=== PATIENT | female | born 1985 | race Caucasian/White ===

== ENCOUNTER 2016-10-15 13:07 | Emergency (ER) | payer OTHER ==
[2016-10-15] MEDS ORDERED: diphenhydrAMINE 50 MG/ML 1 ML VIAL IVP STA (15:11)
[2016-10-15] MEDS ORDERED: SODIUM CHLORIDE 0.9% 1,000 ML IV ONE (15:11)
[2016-10-15] MEDS ORDERED: METOCLOPRAMIDE 5 MG/ML 2 ML VIAL IVP STA (15:11)
--- NOTE | 2016-10-15 15:19 | ED ---
Headache HPI - General Chief Complaint: Headache Stated Complaint: Headache, nausea Time Seen by Provider: 10/15/16 15:07 Mode of arrival: ambulatory Limitations: no limitations - History of Present Illness Initial Comments: This is a 31-year-old female with history of migraines presents emergency report for headache for the last 3 days. She states that it is bifrontal and nonradiating. She states that she has associated photophobia. She also has some associated nausea and vomiting. She denies any focal weakness, numbness, or Pamela. No double vision. No neck pain. She states that all of her symptoms are typical for her migraines. She states that she took Tylenol at home however this did not help. The only thing that helps his IV medications. - Related Data Home Medications Medication Instructions Recorded Confirmed No Known Home Medications [No 10/15/16 10/15/16 Known Home Medications] Allergies Allergy/AdvReac Type Severity Reaction Status Date / Time fish derived Allergy Unknown Verified 10/15/16 15:15 ivory soap Allergy Unknown Uncoded 06/29/16 00:15 Review of Systems ROS Statement: Those systems with pertinent positive or pertinent negative responses have been documented in the HPI. ROS Other: All systems not noted in ROS Statement are negative. Past Medical History Past Medical History: Renal Disease Additional Past Medical History / Comment(s): KIDNEY STONES, colitis, migraines History of Any Multi-Drug Resistant Organisms: None Reported Past Surgical History: Section, Tubal Ligation Additional Past Surgical History / Comment(s): PT STATES SHE HAS HAD A ROBOTIC SURGERY FOR ENDOMETRIOSIS; KIDNEY STENT; BLADDER STENT; LITHOTRIPSY Past Anesthesia/Blood Transfusion Reactions: No Reported Reaction Past Psychological History: ADD/ADHD, Bipolar, Depression Additional Psychological History / Comment(s): PT STATES SHE IS BIPOLAR BUT DOES NOT TAKE ANY MEDICATIONS OF ANY KIND AND DOES NOT SEE A PSYCHIATRIST OR THERAPIST. PT LIVES IN AN APARTMENT WITH HER 7YR OLD SON. SHE IS NORMALLY SELF SUFFICIENT. SHE IS EMPLOYED. SHE DRIVES A CAR. SHE STATES HER FATHER IS HELPFUL AND WILL HELP TAKE CARE OF HER SON WHILE SHE IS HOSPITALIZED. Smoking Status: Current every day smoker Past Alcohol Use History: None Reported Past Drug Use History: None Reported - Past Family History Father Family Medical History: Diabetes Mellitus Mother Family Medical History: Unable to Obtain Additional Family Medical History / Comment(s): PT STATES SHE DOES NOT HAVE ANYTHING MUCH TO DO WITH HER MOTHER. General Exam - General Exam Comments Initial Comments: Constitutional: Awake alert Appears comfortable Head: Normocephalic atraumatic Eyes: no conjunctival injection No scleral icterus EOMI Neck: No JVD Supple Heart: Regular rate rhythm normal S1-S2 no murmurs Lungs: Clear to auscultation bilaterally No wheezing No rales Abdomen: Soft nondistended nontender Extremities: Non edematous DP pulses intact Radial pulses intact Neuro: A&Ox3 renal nerves II through XII are grossly intact, 5 out of 5 strength in upper and lower extremities bilaterally, no ataxia, extraocular muscles are intact, pupils are 3 mm reactive bilaterally Psych: Appropriate mood and affect Limitations: no limitations Course Vital Signs 10/15/16 10/15/16 10/15/16 13:46 16:08 16:15 Temperature 98 F Pulse Rate 78 86 105 H Respiratory 20 14 18 Rate Blood Pressure 126/84 134/86 140/87 O2 Sat by Pulse 99 99 98 Oximetry 10/15/16 17:03 Temperature Pulse Rate 94 Respiratory 14 Rate Blood Pressure 114/70 O2 Sat by Pulse 98 Oximetry Medical Decision Making - Medical Decision Making Is a 31-year-old came in for a migraine. The patient's headache is completely resolved of her medications. She now feels comfortable months ago home. Father is going to take her home. She can return if she has worsening or changing symptoms. All cautions were answered. - Lab Data Lab Results 10/15/16 Range/Units 15:34 Urine HCG, Qual Not Detected (Not Detectd) Disposition Clinical Impression: Migraine Disposition: HOME SELF-CARE Condition: Stable Instructions: Acute Headache (ED) Referrals: Jared Thompson DO [Primary Care Provider] - 1-2 days
[2016-10-15] MEDS ORDERED: LORazepam 2 MG/ML SYRINGE IV STA ×2 (16:14→16:17)
[2016-10-15 17:17] VITALS: BP 116/66; PULSE 88; RESP 16; TEMP 98.3
== END 2016-10-15 17:10 | disposition home or self-care (01) ==
LOC: EC 13:07
DX: G43.909 Migraine, unspecified, not intractable, without status migrainosus (principal); R11.2 Nausea with vomiting, unspecified; F17.200 Nicotine dependence, unspecified, uncomplicated; Z91.013 Allergy to seafood; Z91.09 Other allergy status, other than to drugs and biological substances
CPT/HCPCS: 81025; 99283; 96374; 96375 ×2; 96361; J2060; J1200; J2765

== ENCOUNTER 2017-02-06 08:11 | Emergency (ER) | payer OTHER ==
[2017-02-06] MEDS ORDERED: diphenhydrAMINE 50 MG/ML 1 ML VIAL IVP STA (08:22)
[2017-02-06] MEDS ORDERED: SODIUM CHLORIDE 0.9% 1,000 ML IV STA (08:22)
[2017-02-06] MEDS ORDERED: KETOROLAC 30 MG/ML 1 ML VIAL IVP STA (08:22)
[2017-02-06] MEDS ORDERED: PROMETHAZINE INJ 25 MG in SODIUM CHLORIDE 0.9% 50 ML IVPB STA (08:27)
--- NOTE | 2017-02-06 08:29 | ED ---
General Adult HPI - General Chief complaint: Headache Stated complaint: migraine Time Seen by Provider: 02/06/17 08:16 Source: patient, RN notes reviewed Mode of arrival: ambulatory Limitations: no limitations - History of Present Illness Initial comments: Patient 31-year-old female sitting in the past medical history for migraines, who presents emergency room today with chief complaint of a migraine headache that started 2 days ago. She does admit that it's located in the front. Does admit that it seems to radiate around to the back. Patient states that she does have some photosensitivity. She admits to nausea. States only symptoms are consistent with migraine headaches that she's had in the past. She states she usually uses Tylenol ibuprofen at home but is had no relief. She denies any new symptoms today. Denies any other complaints. Patient denies any recent fever, chills, shortness of breath, chest pain, back pain, abdominal pain, nausea or vomiting, numbness or tingling, dysuria or hematuria, constipation or diarrhea, visual changes, or any other complaints. - Related Data Home Medications Medication Instructions Recorded Confirmed No Known Home Medications [No 10/15/16 02/06/17 Known Home Medications] Allergies Allergy/AdvReac Type Severity Reaction Status Date / Time fish derived Allergy Unknown Verified 02/06/17 09:09 ivory soap Allergy Unknown Uncoded 02/06/17 08:15 Review of Systems ROS Statement: Those systems with pertinent positive or pertinent negative responses have been documented in the HPI. ROS Other: All systems not noted in ROS Statement are negative. Past Medical History Past Medical History: Renal Disease Additional Past Medical History / Comment(s): KIDNEY STONES, colitis, migraines History of Any Multi-Drug Resistant Organisms: None Reported Past Surgical History: Section, Tubal Ligation Additional Past Surgical History / Comment(s): PT STATES SHE HAS HAD A ROBOTIC SURGERY FOR ENDOMETRIOSIS; KIDNEY STENT; BLADDER STENT; LITHOTRIPSY Past Anesthesia/Blood Transfusion Reactions: No Reported Reaction Past Psychological History: ADD/ADHD, Bipolar, Depression Smoking Status: Current every day smoker Past Alcohol Use History: None Reported Past Drug Use History: None Reported - Past Family History Father Family Medical History: Diabetes Mellitus Mother Family Medical History: Unable to Obtain Additional Family Medical History / Comment(s): PT STATES SHE DOES NOT HAVE ANYTHING MUCH TO DO WITH HER MOTHER. General Exam - General Exam Comments Initial Comments: General: The patient is awake and alert, in no distress, and does not appear acutely ill. Eye: Pupils are equal, round and reactive to light, extra-ocular movements are intact. No nystagmus. There is normal conjunctiva bilaterally. No signs of icterus. Ears, nose, mouth and throat: There are moist mucous membranes and no oral lesions. Neck: The neck is supple, there is no tenderness or JVD. Cardiovascular: There is a regular rate and rhythm. No murmur, rub or gallop is appreciated. Respiratory: Lungs are clear to auscultation, respirations are non-labored, breath sounds are equal. No wheezes, stridor, rales, or rhonchi. Musculoskeletal: Normal ROM, no tenderness. Strength 5/5. Sensation intact. Pulses equal bilaterally 2+. Neurological: A&O x 3. CN II-XII intact, There are no obvious motor or sensory deficits. Coordination appears grossly intact. Speech is normal. Skin: Skin is warm and dry and no rashes or lesions are noted. Psychiatric: Cooperative, appropriate mood & affect, normal judgment. Limitations: no limitations Course Vital Signs 02/06/17 02/06/17 02/06/17 08:13 08:51 09:45 Temperature 98.0 F 98.1 F 98.1 F Pulse Rate 102 H 92 84 Respiratory 18 16 16 Rate Blood Pressure 121/80 137/78 122/73 O2 Sat by Pulse 98 99 97 Oximetry Medical Decision Making - Medical Decision Making Reexamined at this time shows no signs of distress. States she's feeling better. Patient will be discharged home Disposition Clinical Impression: Migraine Disposition: HOME SELF-CARE Condition: Good Instructions: Migraine Headache (ED) Additional Instructions: Please use medication as discussed. Please follow-up with family doctor in the next 2 days of symptoms have not improved. Please return to emergency room if the symptoms increase or worsen or for any other concerns. Referrals: None,Stated [Primary Care Provider] - 1-2 days Time of Disposition: 10:07
[2017-02-06 08:54] VITALS: RESP 16
[2017-02-06 09:54] VITALS: BP 122/73; PULSE 84
[2017-02-06 10:23] VITALS: TEMP 98.2
== END 2017-02-06 10:19 | disposition home or self-care (01) ==
LOC: EC 08:11
DX: G43.909 Migraine, unspecified, not intractable, without status migrainosus (principal); F17.200 Nicotine dependence, unspecified, uncomplicated; Z91.013 Allergy to seafood; Z91.048 Other nonmedicinal substance allergy status
CPT/HCPCS: 99283; 96374; 96375; J1200; J2550; J1885

== ENCOUNTER → 2017-03-13 | Outpatient (CLI) | payer OTHER ==
--- NOTE | 2017-03-13 16:33 | US ---
EXAMINATION TYPE: US pelvic complete DATE OF EXAM: 03/13/2017 COMPARISON: CT CLINICAL HISTORY: N92.0 MENORRHAGIA. Heavy Menses TECHNIQUE: Transabdominal (TA) Date of LMP: 03/02/2017 EXAM MEASUREMENTS: Uterus: 9.2 x 3.1 x 4.6 cm Endometrial Stripe: 0.9 cm Right Ovary: 2.3 x 1.4 x 1.8 cm Left Ovary: 2.5 x 1.8 x 2.3 cm 1. Uterus: Anteverted Heterogeneous, otherwise appeared wnl 2. Endometrium: wnl 3. Right Ovary: wnl 4. Left Ovary: wnl 5. Bilateral Adnexa: wnl 6. Posterior cul-de-sac: wnl IMPRESSION: No significant abnormality.
[2017-03-13 17:08] LABS: Follicle Stimulating Hormone 4.4 mIU/mL; Prolactin 33.5 ng/mL (3.0-18.6)
== END | disposition home or self-care (01) ==
LOC: RADUSWWP 16:11
PROVIDERS: ATTEND Obstetrics & Gynecology
DX: N92.0 Excessive and frequent menstruation with regular cycle (principal)
CPT/HCPCS: 76856; 83001; 83002; 84146; 84443

== ENCOUNTER → 2017-03-16 | Outpatient (CLI) | payer OTHER ==
--- NOTE | 2017-03-17 07:56 | USB ---
Reason for exam: clinical finding. Indicated problem(s): difficult physical exam and pain in both breasts. Palpable abnormality in the left breast. Physical Findings: Nurse Summary: 1cm movable at 12 o'clock and 3 o'clock in the left breast (nurse dw). US Breast LT Left breast ultrasound includes all four quadrants, the retroareolar region and axilla. Finding demonstrates no cystic or solid lesion seen. These results were verbally communicated with the patient and result sheet given to the patient on 03/16/17. ASSESSMENT: Negative, BI-RAD 1 RECOMMENDATION: Routine screening mammogram of both breasts at age 33. Manage patient on a clinical basis.
== END ==
LOC: RADUSWWP 15:36
PROVIDERS: ATTEND Obstetrics & Gynecology
DX: N64.4 Mastodynia (principal)

== ENCOUNTER 2017-04-20 09:48 | Emergency (ER) | payer OTHER ==
[2017-04-20 09:53] VITALS: TEMP 97.2
[2017-04-20] MEDS ORDERED: diphenhydrAMINE 50 MG/ML 1 ML VIAL IVP STA (10:01)
[2017-04-20] MEDS ORDERED: SODIUM CHLORIDE 0.9% 2,000 ML IV ONE (10:01)
[2017-04-20] MEDS ORDERED: KETOROLAC 30 MG/ML 1 ML VIAL IVP STA (10:01)
[2017-04-20] MEDS ORDERED: METOCLOPRAMIDE 5 MG/ML 2 ML VIAL IVP STA (10:01)
[2017-04-20] MEDS ORDERED: DEXAMETHASONE SOD PHOSPHATE 10 MG/ML 1 ML VIAL IV STA (10:07)
--- NOTE | 2017-04-20 10:07 | ED ---
Headache HPI - General Chief Complaint: Headache Stated Complaint: headache/nausea Time Seen by Provider: 04/20/17 09:56 Source: patient Mode of arrival: ambulatory Limitations: no limitations - History of Present Illness Initial Comments: The patient is a 31-year-old female who presents with a chief complaint of headache. Patient states the headache has been going on for 4 days constantly. She has a history of migraine headaches. She describes her headache as left frontal. She states that feels extremities stabbing needles into her eye. She states that this is very typical of the migraine headaches that she normally has. She states that she gets a headache about once a month or less about 3 or 4 days. She does not take anything for migraines on a maintenance basis. Patient does not see a neurologist regularly. Patient states that her headache is aggravated by light and sound. There are no alleviating factors. Timing is been constant for the last 4 days. MD Complaint: headache Onset/Timin -: days(s) Onset Description: sudden Location: left, frontal Severity: moderate Quality: aching, sharp Consistency: constant Improves With: nothing Worsens With: light, noise Context: occurred at rest Associated Symptoms: nausea Treatments Prior to Arrival: Acetaminophen, Ibuprofen - Related Data Home Medications Medication Instructions Recorded Confirmed No Known Home Medications [No 10/15/16 04/20/17 Known Home Medications] Allergies Allergy/AdvReac Type Severity Reaction Status Date / Time fish derived Allergy Unknown Verified 04/20/17 10:13 ivory soap Allergy Unknown Uncoded 04/20/17 09:53 Review of Systems ROS Statement: Those systems with pertinent positive or pertinent negative responses have been documented in the HPI. ROS Other: All systems not noted in ROS Statement are negative. Constitutional: Denies: fever, chills Eyes: Reports: eye pain. Denies: vision change ENT: Denies: ear pain, throat pain Respiratory: Denies: cough, dyspnea Cardiovascular: Denies: chest pain, palpitations Endocrine: Denies: fatigue Gastrointestinal: Reports: nausea. Denies: vomiting, diarrhea, constipation Genitourinary: Denies: urgency, dysuria Musculoskeletal: Denies: back pain Skin: Denies: rash Neurological: Reports: headache. Denies: weakness, numbness, paresthesias, abnormal gait Psychiatric: Reports: as per HPI Hematological/Lymphatic: Reports: as per HPI Past Medical History Past Medical History: Renal Disease Additional Past Medical History / Comment(s): KIDNEY STONES, colitis, migraines History of Any Multi-Drug Resistant Organisms: None Reported Past Surgical History: Section, Tubal Ligation Additional Past Surgical History / Comment(s): PT STATES SHE HAS HAD A ROBOTIC SURGERY FOR ENDOMETRIOSIS; KIDNEY STENT; BLADDER STENT; LITHOTRIPSY Past Anesthesia/Blood Transfusion Reactions: No Reported Reaction Past Psychological History: ADD/ADHD, Bipolar, Depression Smoking Status: Current every day smoker Past Alcohol Use History: None Reported Past Drug Use History: None Reported - Past Family History Father Family Medical History: Diabetes Mellitus Mother Family Medical History: Unable to Obtain Additional Family Medical History / Comment(s): PT STATES SHE DOES NOT HAVE ANYTHING MUCH TO DO WITH HER MOTHER. General Exam Limitations: no limitations General appearance: alert, in no apparent distress Head exam: Present: atraumatic, normocephalic Eye exam: Present: normal appearance, PERRL, EOMI ENT exam: Present: normal exam, normal oropharynx Neck exam: Present: normal inspection Respiratory exam: Present: normal lung sounds bilaterally. Absent: respiratory distress, wheezes Cardiovascular Exam: Present: regular rate, normal rhythm, normal heart sounds GI/Abdominal exam: Present: soft. Absent: distended, tenderness Rectal exam: Present: deferred Extremities exam: Present: normal inspection Back exam: Present: normal inspection Neurological exam: Present: alert, oriented X3, CN II-XII intact, normal gait, other (Romberg test is negative. Finger to nose, and rapid alternating movement are within normal limits. Patient has no sensory or motor deficits. Strength is 5 over 5 in bilateral upper and lower extremities.) Psychiatric exam: Present: normal affect, normal mood Skin exam: Present: warm, dry, intact Course Vital Signs 04/20/17 09:51 Temperature 97.2 F L Pulse Rate 91 Respiratory 18 Rate Blood Pressure 135/75 O2 Sat by Pulse 98 Oximetry Medical Decision Making - Medical Decision Making Patient with a history of migraine headaches presents with migraine headache. Patient states is going on for 4 days. Her headache is not alleviated with Motrin or Tylenol. On initial examination vital signs are stable, neuro exam is nonfocal. Patient will be given IV fluids, Toradol, Reglan, and Benadryl. She'll be reassessed. 11:11 AM Patient was reexamined and states that she is feeling better. Her headache is not completely resolved over the patient feels comfortable going home at this point. Patient is instructed to follow-up with primary care and inquire about referral to neurology. She is instructed to take Tylenol and Motrin for headaches at home. She is further instructed to return to the emergency department if her symptoms worsen or change in anyway. Disposition Clinical Impression: Migraine headache Disposition: HOME SELF-CARE Condition: Good Instructions: Acute Headache (ED), Migraine Headache (ED) Referrals: None,Stated [Primary Care Provider] - 1-2 days
[2017-04-20 11:30] VITALS: BP 116/71; PULSE 78; RESP 16
== END 2017-04-20 11:30 | disposition home or self-care (01) ==
LOC: EC 09:48
DX: G43.909 Migraine, unspecified, not intractable, without status migrainosus (principal); F17.200 Nicotine dependence, unspecified, uncomplicated; Z91.013 Allergy to seafood; Z91.048 Other nonmedicinal substance allergy status
CPT/HCPCS: 99283; 96374; 96375 ×3; 96361; J1200; J1100; J2765; J1885

== ENCOUNTER 2017-05-21 14:24 | Emergency (ER) | payer OTHER ==
[2017-05-21 14:33] VITALS: BP 127/76; PULSE 94; RESP 20; TEMP 98.5
--- NOTE | 2017-05-21 15:01 | ED ---
General Adult HPI - General Chief complaint: Extremity Injury, Upper Stated complaint: IHS/Finger pain Time Seen by Provider: 05/21/17 14:46 Source: patient Mode of arrival: ambulatory Limitations: no limitations - History of Present Illness Initial comments: This is a 31-year-old female who presents to the emergency department with chief complaint of left 3rd digit injury. She reports that the incident occurred at work today at approximately 1245. She reports that she jammed her left middle finger into a metal box. States the pain is localized to the left middle knuckle. The pain is constant and is worsened with finger flexion with radiation to the left forearm and elbow. Denies fever, chills, chest pain, shortness of breath, abdominal pain, nausea, vomiting, dysuria, hematuria, numbess, tingling, headache or vision changes. - Related Data Previous Rx's Medication Instructions Recorded Ibuprofen [Motrin] 800 mg PO Q6HR #30 tab 05/21/17 Allergies Allergy/AdvReac Type Severity Reaction Status Date / Time fish derived Allergy Unknown Verified 05/21/17 14:33 ivory soap Allergy Unknown Uncoded 05/21/17 14:33 Review of Systems ROS Statement: Those systems with pertinent positive or pertinent negative responses have been documented in the HPI. ROS Other: All systems not noted in ROS Statement are negative. Past Medical History Past Medical History: Renal Disease Additional Past Medical History / Comment(s): KIDNEY STONES, colitis, migraines History of Any Multi-Drug Resistant Organisms: None Reported Past Surgical History: Section, Tubal Ligation Additional Past Surgical History / Comment(s): PT STATES SHE HAS HAD A ROBOTIC SURGERY FOR ENDOMETRIOSIS; KIDNEY STENT; BLADDER STENT; LITHOTRIPSY Past Anesthesia/Blood Transfusion Reactions: No Reported Reaction Past Psychological History: ADD/ADHD, Bipolar, Depression Smoking Status: Current every day smoker Past Alcohol Use History: None Reported Past Drug Use History: None Reported - Past Family History Father Family Medical History: Diabetes Mellitus Mother Family Medical History: Unable to Obtain Additional Family Medical History / Comment(s): PT STATES SHE DOES NOT HAVE ANYTHING MUCH TO DO WITH HER MOTHER. General Exam - General Exam Comments Initial Comments: General: Awake and alert, well-developed; in no apparent distress. HEENT: Head atraumatic, normocephalic. Pupils are equal, round and reactive to light. Extraocular movements intact. Neck: Supple. Normal ROM. Cardiovascular: Regular rate and rhythm. No murmurs, rubs or gallops. Chest symmetrical. Respiratory: Lungs clear to auscultation bilaterally. No wheezes, rales or rhonchi. Normal respiratory efffort with no use of accessory muscles. Abdomen: Soft, non-tender, non-distended. No rigidity, rebound or guarding. Normal bowel sounds in all 4 quadrants. Extremities/Skin: [place], warm and dry. Left middle digit is mildly swollen. Tenderness along the entire left third digit however more severe at the PIP. Neurological: Alert and oriented x3. CN II-XII grossly intact. Speech is fluent and answers are appropriate. No focal neuro deficits. Psychiatric: Normal mood and affect. No overt signs of depression or anxiety noted. Limitations: no limitations Course Vital Signs 05/21/17 14:31 Temperature 98.5 F Pulse Rate 94 Respiratory 20 Rate Blood Pressure 127/76 O2 Sat by Pulse 98 Oximetry Medical Decision Making - Medical Decision Making Left hand x-ray was reviewed, no abnormalities seen. Patient was advised to rest and ice the finger as needed. Will be prescribed ibuprofen for pain and inflammation. Advised to follow up with PCP and to return to ED if symptoms should worsen. Disposition Clinical Impression: Sprain of finger of left hand Disposition: HOME SELF-CARE Condition: Good Instructions: Casper Hernandez (ED) Additional Instructions: Please take medications as prescribed. Please follow up with PCP within 1-2 days. Return to ED if symptoms should worsen. Prescriptions: Ibuprofen [Motrin] 800 mg PO Q6HR #30 tab Referrals: None,Stated [Primary Care Provider] - 1-2 days Time of Disposition: 15:15
--- NOTE | 2017-05-21 15:04 | XR ---
EXAMINATION TYPE: XR hand complete LT DATE OF EXAM: 05/21/2017 COMPARISON: NONE HISTORY: 31-year-old female pain third digit TECHNIQUE: 3 views FINDINGS: No acute fracture, subluxation, or dislocation. No periostitis or osteolysis. Joint spaces throughout are maintained. IMPRESSION: No acute osseous abnormality seen.
== END 2017-05-21 15:44 | disposition home or self-care (01) ==
LOC: EC 14:24
DX: S63.613A Unspecified sprain of left middle finger, initial encounter (principal); F17.200 Nicotine dependence, unspecified, uncomplicated; Z91.09 Other allergy status, other than to drugs and biological substances; Z91.013 Allergy to seafood; W23.0XXA Caught, crushed, jammed, or pinched between moving objects, initial encounter; Y93.89 Activity, other specified; Y99.0 Civilian activity done for income or pay; Y92.69 Other specified industrial and construction area as the place of occurrence of the external cause
CPT/HCPCS: 99283

== ENCOUNTER → 2017-05-22 | Outpatient (CLI) | payer OTHER ==
[2017-05-22 09:35] LABS: Basophils # (A) 0.1 k/uL (0-0.2); Basophils % (A) 1 %; CH 33.6; CHCM 33.6; Eosinophils # (A) 0.2 k/uL (0-0.7); Eosinophils % (A) 3 %; HCT 46.5 % (34.0-46.0); HDW 2.17; HGB 15.1 gm/dL (11.4-16.0); Luc # (Auto) 0.21; Luc % (Auto) 3; Lymphocytes % (A) 24 %; MCH 32.8 pg (25.0-35.0); MCHC 32.6 g/dL (31.0-37.0); MCV 100.7 fL (80.0-100.0); Mean Platelet Volume 8.2; Monocytes # (A) 0.4 k/uL (0-1.0); Monocytes % (A) 4 %; Neutrophils # (A) 5.5 k/uL (1.3-7.7); Neutrophils % (A) 66 %; RBC 4.62 m/uL (3.80-5.40); WBC 8.4 k/uL (3.8-10.6); WBC (Perox) 8.68
== END | disposition home or self-care (01) ==
LOC: LABPAT 08:55
PROVIDERS: ATTEND Obstetrics & Gynecology
DX: Z01.812 Encounter for preprocedural laboratory examination (principal)
CPT/HCPCS: 36415; 85025

== ENCOUNTER 2017-05-29 06:26 | Day surgery (SDC) | payer OTHER ==
[2017-05-26 13:05] VITALS: BMI 30.7
[~2017-05-29 06:26] MED LIST: DEXAMETHASONE SOD PHOSPHATE 10 MG/ML 1 ML VIAL IV ONE; LACTATED RINGERS 1,000 ML IV SCH; MIDAZOLAM 2 MG/2 ML VIAL IV PRN; ONDANSETRON 4 MG/2 ML VIAL IVP ONE; Pre Op ABX Message 1 EACH MISC MISCELLANE ONE; SCOPOLAMINE 1.5MG/72HR PATCH TRANSDERM ONE
[2017-05-29] MEDS ORDERED: LIDOCAINE 1% 20 ML VIAL (10MG/ML) FOR IV START INTRADERMA ONE (06:57)
--- NOTE | 2017-05-29 07:45 | P.HPOB ---
History of Present Illness H&P Date: 05/29/17 Chief Complaint: menorrhagia labial condyloma Patient is a 31-year-old female with heavy vaginal bleeding. She notes that she has proxy dime size clots and bleeding is extremely heavy. Bleeding has been this bad for number of months and is symptomatically reduced her ability to function. She is having to stay home and missed work. She also is noted to have a 2 or 3.5 cm condyloma on the left labia these will be removed at the same time. On physical exam vital signs are stable and afebrile. Heart regular , lungs clear, extremities without pain. Pelvic exam is otherwise unremarkable. Assessment menorrhagia labial condyloma. Plan D&C with hysteroscopy [facility] with excision of labial condyloma. Past Medical History Past Medical History: Renal Disease Additional Past Medical History / Comment(s): KIDNEY STONES, colitis, migraines History of Any Multi-Drug Resistant Organisms: None Reported Past Surgical History: Section, Tubal Ligation Additional Past Surgical History / Comment(s): PT STATES SHE HAS HAD A ROBOTIC SURGERY FOR ENDOMETRIOSIS; KIDNEY STENT; BLADDER STENT; LITHOTRIPSY Past Anesthesia/Blood Transfusion Reactions: No Reported Reaction Past Psychological History: ADD/ADHD, Bipolar, Depression Additional Psychological History / Comment(s): Does not take any medication for these. Smoking Status: Current every day smoker Past Alcohol Use History: None Reported Additional Past Alcohol Use History / Comment(s): Has been smoking 1/2PPD since 1997. Past Drug Use History: None Reported - Past Family History Father Family Medical History: Diabetes Mellitus Mother Family Medical History: Unable to Obtain Additional Family Medical History / Comment(s): PT STATES SHE DOES NOT HAVE ANYTHING MUCH TO DO WITH HER MOTHER. Medications and Allergies Home Medications Medication Instructions Recorded Confirmed Type No Known Home Medications [No 05/26/17 05/26/17 History Known Home Medications] Allergies Allergy/AdvReac Type Severity Reaction Status Date / Time fish derived Allergy Unknown Verified 05/26/17 12:57 ivory soap Allergy Unknown Uncoded 05/26/17 12:57 Exam Osteopathic Statement: *. No significant issues noted on an osteopathic structural exam other than those noted in the History and Physical/Consult. - Vital Signs Vital signs: Vital Signs Temp Pulse Resp BP Pulse Ox 05/29/17 06:46 97.2 F L 85 16 102/68 98
[2017-05-29] MEDS ORDERED: LIDOCAINE 1% INJ 10MG/ML (20 ML MDV) ONE (07:54)
[2017-05-29] MEDS ORDERED: PROPOFOL 10 MG/ML 20 ML VIAL IV ONE (07:54)
[2017-05-29] MEDS ORDERED: fentaNYL (PF) 50 MCG/ML 2 ML AMP ONE (07:54)
[2017-05-29] MEDS ORDERED: KETOROLAC 30 MG/ML 1 ML VIAL ONE (07:54)
[2017-05-29] MEDS ORDERED: BUPIVACAINE (PF) 0.25% 30 ML VIAL SQ ONE (08:19)
--- NOTE | 2017-05-29 08:37 | P.OP ---
Date of Procedure: 05/29/17 Preoperative Diagnosis: Menorrhagia with labial condyloma Postoperative Diagnosis: Same with multiple sebaceous cysts Procedure(s) Performed: D&C with hysteroscopy and NovaSure ablation. Excisional biopsy of condyloma. Manual expression of multiple sebaceous cysts Anesthesia: MURPHY Surgeon: Lukas Bran Estimated Blood Loss (ml): 2 Pathology: other (Uterine curettings and condyloma) Condition: stable Disposition: same day Operative Findings: 2 large almost 1 cm condyloma one smaller 0.3 cm condyloma and multiple sebaceous cysts noted Description of Procedure: Patient was taken to the operating suite where a general anesthetic was found to be adequate. She was prepped and draped in the normal sterile fashion and placed in dorsal lithotomy position. Initially a weighted speculum was inserted into the vagina into lip of the cervix was identified and grasped with a Allis clamp and the cervix was dilated. Uterus was then sounded to 7 cm pocket. Once this was accomplished camera was inserted no significant pathology was noted therefore camera was removed and sharp curettings were obtained. Once this was accomplished NovaSure systems inserted with a length of 4 and a width of 2.5 it was tested and passed its patency test. It was then enabled and burned for 71 seconds. At the conclusion of this camera was reinserted with good burn noted. Those instruments were then removed and attention was turned to the condyloma. She had 2 larger condyloma left labia lateral to the clitoral area quarter percent Marcaine without epinephrine was injected under these and then they were excised with a 15 blade. Each incision was then closed with 4-0 Vicryl. There was a third smaller condyloma on the left side almost into her groin region which was also excised in a similar fashion with 1 4-0 Vicryl stitch placed to reapproximate the skin. Multiple sebaceous cysts are also noted and as best I could I expressed those. Once this was completed all instruments were removed sponge, lap, needle counts were all correct 2. Patient was then taken to the recovery room in stable and satisfactory condition. Plan - Discharge Summary New Discharge Prescriptions: New Acetaminophen-Codeine 300-30mg [Tylenol #3] 1 tab PO Q4H PRN #30 tablet PRN Reason: Pain Ibuprofen [Motrin] 600 mg PO Q6HR PRN #30 tab PRN Reason: Pain Discharge Medication List Acetaminophen-Codeine 300-30mg [Tylenol #3] 1 tab PO Q4H PRN #30 tablet [Rx] Ibuprofen [Motrin] 600 mg PO Q6HR PRN #30 tab 05/29/17 [Rx] Follow up Appointment(s)/Referral(s): Lukas Bran DO [Doctor of Osteopathic Medicine] - 3 Weeks Activity/Diet/Wound Care/Special Instructions: Rest the next few days, no heavy lifting or driving today. Call for any heavy bleeding, severe pain, or evidence of infection i.e. high temperatures Discharge Disposition: HOME SELF-CARE
[2017-05-29 08:43] VITALS: TEMP 97.5
[2017-05-29] MEDS: HYDROmorphone 0.5 MG/0.5 ML SYRINGE IVP PRN ×4 (08:48→09:01)
[2017-05-29 08:50] VITALS: RESP 16
[2017-05-29] MEDS ORDERED: Acetaminophen-Codeine 300-30mg TAB PO ONE (09:34)
[2017-05-29 09:50] VITALS: BP 117/67; PULSE 87
== END 2017-05-29 10:15 | disposition home or self-care (01) ==
LOC: OR 06:26
PROVIDERS: ATTEND Obstetrics & Gynecology
DX: N92.0 Excessive and frequent menstruation with regular cycle (principal); N90.7 Vulvar cyst; N94.89 Other specified conditions associated with female genital organs and menstrual cycle; N84.0 Polyp of corpus uteri; F17.200 Nicotine dependence, unspecified, uncomplicated; Z87.442 Personal history of urinary calculi; Z91.018 Allergy to other foods; Z91.09 Other allergy status, other than to drugs and biological substances
CPT/HCPCS: 58563; 11422; 10061; 81025; 88305; J1100; J2405; J2001; J3010; J1885; J2704; J1170

== ENCOUNTER 2017-07-12 10:20 | Emergency (ER) | payer OTHER ==
[2017-07-12 10:26] VITALS: BP 128/79; PULSE 100; RESP 19; TEMP 97.6
[2017-07-12] MEDS ORDERED: AMOXICILLIN 500 MG CAP PO STA (10:44)
--- NOTE | 2017-07-12 10:45 | ED ---
ENT HPI - General Chief complaint: ENT Stated complaint: sore throat Time Seen by Provider: 07/12/17 10:30 Source: patient, RN notes reviewed Mode of arrival: ambulatory Limitations: no limitations - History of Present Illness Initial comments: 31-year-old male present emergency department with chief complaint of sore throat. Patient states that she just sore for 3 days no improvement. States it feels like she is swallowing glass. Patient states she received a note from her kids at school stating that there were exposed to strep. Patient states that she's felt febrile. Denies any cough chest congestion shortness breath, headache or dizziness. She has a slight runny nose. Tried Tylenol Motrin and Chloraseptic spray - Related Data Previous Rx's Medication Instructions Recorded Acetaminophen-Codeine 300-30mg 1 tab PO Q4H PRN #30 tablet 05/29/17 [Tylenol #3] Ibuprofen [Motrin] 600 mg PO Q6HR PRN #30 tab 05/29/17 Amoxicillin 500 mg PO Q8H #30 capsule 07/12/17 Allergies Allergy/AdvReac Type Severity Reaction Status Date / Time fish derived Allergy Unknown Verified 07/12/17 10:23 ivory soap Allergy Unknown Uncoded 07/12/17 10:23 Review of Systems ROS Statement: Those systems with pertinent positive or pertinent negative responses have been documented in the HPI. ROS Other: All systems not noted in ROS Statement are negative. Past Medical History Past Medical History: Renal Disease Additional Past Medical History / Comment(s): KIDNEY STONES, colitis, migraines History of Any Multi-Drug Resistant Organisms: None Reported Past Surgical History: Section, Tubal Ligation Additional Past Surgical History / Comment(s): PT STATES SHE HAS HAD A ROBOTIC SURGERY FOR ENDOMETRIOSIS; KIDNEY STENT; BLADDER STENT; LITHOTRIPSY Past Anesthesia/Blood Transfusion Reactions: No Reported Reaction Past Psychological History: ADD/ADHD, Bipolar, Depression Smoking Status: Current every day smoker Past Alcohol Use History: None Reported Past Drug Use History: None Reported - Past Family History Father Family Medical History: Diabetes Mellitus Mother Family Medical History: Unable to Obtain Additional Family Medical History / Comment(s): PT STATES SHE DOES NOT HAVE ANYTHING MUCH TO DO WITH HER MOTHER. General Exam Limitations: no limitations General appearance: alert, in no apparent distress Head exam: Present: atraumatic, normocephalic, normal inspection Eye exam: Present: normal appearance, PERRL, EOMI. Absent: scleral icterus, conjunctival injection, periorbital swelling ENT exam: Present: mucous membranes moist, TM's normal bilaterally, normal external ear exam. Absent: normal oropharynx (Erythematous posterior pharynx) Neck exam: Present: normal inspection, full ROM. Absent: tenderness, meningismus, lymphadenopathy Respiratory exam: Present: normal lung sounds bilaterally. Absent: respiratory distress, wheezes, rales, rhonchi, stridor Cardiovascular Exam: Present: regular rate, normal rhythm, normal heart sounds. Absent: systolic murmur, diastolic murmur, rubs, gallop, clicks Skin exam: Present: warm, dry, intact, normal color. Absent: rash Course Vital Signs 07/12/17 10:24 Temperature 97.6 F Pulse Rate 100 Respiratory 19 Rate Blood Pressure 128/79 O2 Sat by Pulse 99 Oximetry Medical Decision Making - Medical Decision Making 31-year-old male present for severe throat. Patient has strep pharyngitis clinically and will be treated. Patient will continue Tylenol or Motrin and salt water gargles return parameters were discussed. Disposition Clinical Impression: Streptococcal sore throat Disposition: HOME SELF-CARE Condition: Stable Instructions: Strep Throat (ED) Additional Instructions: Please return to the Emergency Department if symptoms worsen or any other concerns. Prescriptions: Amoxicillin 500 mg PO Q8H #30 capsule Referrals: None,Stated [Primary Care Provider] - 1-2 days Time of Disposition: 10:45
== END 2017-07-12 11:01 | disposition home or self-care (01) ==
LOC: EC 10:20
DX: J02.0 Streptococcal pharyngitis (principal); F17.200 Nicotine dependence, unspecified, uncomplicated; Z91.013 Allergy to seafood; Z91.09 Other allergy status, other than to drugs and biological substances
CPT/HCPCS: 99282

== ENCOUNTER 2017-07-13 20:56 | Emergency (ER) | payer OTHER ==
[2017-07-13 21:00] VITALS: BP 137/77; PULSE 88; RESP 16; TEMP 98.5
[2017-07-13] MEDS ORDERED: DEXAMETHASONE SOD PHOSPHATE 10 MG/ML 1 ML VIAL IM STA (21:14)
--- NOTE | 2017-07-13 21:16 | ED ---
ENT HPI - General Chief complaint: ENT Stated complaint: strep throat-revisit Time Seen by Provider: 07/13/17 21:05 Source: patient, RN notes reviewed Mode of arrival: ambulatory Limitations: no limitations - History of Present Illness Initial comments: 31-year-old female presents emergency from she complaint of sore throat, swallowing. Patient seen here yesterday diagnosed with strep pharyngitis. Patient states she started antibiotics. Patient states that she feels her uvula is swollen. Denies any difficulty swallowing front of debridement. Denies fever or chills today. Patient states she's been using Chloraseptic spray, Tylenol Motrin. Patient states that she felt that she need to have her recheck. - Related Data Home Medications Medication Instructions Recorded Confirmed Acetaminophen Tab [Tylenol Tab] 1,000 mg PO Q6HR PRN 07/12/17 07/12/17 Previous Rx's Medication Instructions Recorded Ibuprofen [Motrin] 600 mg PO Q6HR PRN #30 tab 05/29/17 Amoxicillin 500 mg PO Q8H #30 capsule 07/12/17 Lidocaine Viscous 2% [Xylocaine 5 - 10 ml MUCOUS MEM QID PRN #150 07/13/17 Viscous] ml Allergies Allergy/AdvReac Type Severity Reaction Status Date / Time fish derived Allergy Unknown Verified 07/13/17 21:00 ivory soap Allergy Unknown Uncoded 07/13/17 21:00 Review of Systems ROS Statement: Those systems with pertinent positive or pertinent negative responses have been documented in the HPI. ROS Other: All systems not noted in ROS Statement are negative. Past Medical History Past Medical History: Renal Disease Additional Past Medical History / Comment(s): KIDNEY STONES, colitis, migraines History of Any Multi-Drug Resistant Organisms: None Reported Past Surgical History: Section, Tubal Ligation Additional Past Surgical History / Comment(s): PT STATES SHE HAS HAD A ROBOTIC SURGERY FOR ENDOMETRIOSIS; KIDNEY STENT; BLADDER STENT; LITHOTRIPSY. uterine ablation. Past Anesthesia/Blood Transfusion Reactions: No Reported Reaction Past Psychological History: ADD/ADHD, Bipolar, Depression Smoking Status: Current every day smoker Past Alcohol Use History: None Reported Past Drug Use History: None Reported - Past Family History Father Family Medical History: Diabetes Mellitus Mother Family Medical History: Unable to Obtain Additional Family Medical History / Comment(s): PT STATES SHE DOES NOT HAVE ANYTHING MUCH TO DO WITH HER MOTHER. General Exam Limitations: no limitations General appearance: alert, in no apparent distress Head exam: Present: atraumatic, normocephalic, normal inspection Eye exam: Present: normal appearance, PERRL, EOMI. Absent: scleral icterus, conjunctival injection, periorbital swelling ENT exam: Present: mucous membranes moist, TM's normal bilaterally, normal external ear exam. Absent: normal exam, normal oropharynx (Erythema of posterior pharynx, swollen uvula no difficulties on secretions) Neck exam: Present: normal inspection, full ROM. Absent: tenderness, meningismus, lymphadenopathy Respiratory exam: Present: normal lung sounds bilaterally. Absent: respiratory distress, wheezes, rales, rhonchi, stridor Cardiovascular Exam: Present: regular rate, normal rhythm, normal heart sounds. Absent: systolic murmur, diastolic murmur, rubs, gallop, clicks Skin exam: Present: warm, dry, intact, normal color. Absent: rash Course Vital Signs 07/13/17 20:58 Temperature 98.5 F Pulse Rate 88 Respiratory 16 Rate Blood Pressure 137/77 O2 Sat by Pulse 100 Oximetry Medical Decision Making - Medical Decision Making 31-year-old female was observed for recheck sore throat. Patient has mild swelling of the uvula. Patient be given Decadron as she states her stomach is upset. Patient also given viscous lidocaine to help with the discomfort. Return parameters were discussed. Disposition Clinical Impression: Streptococcal sore throat, Uvulitis Disposition: HOME SELF-CARE Condition: Stable Instructions: Uvulitis (ED) Additional Instructions: Please return to the Emergency Department if symptoms worsen or any other concerns. Prescriptions: Lidocaine Viscous 2% [Xylocaine Viscous] 5 - 10 ml MUCOUS MEM QID PRN #150 ml PRN Reason: Pain Referrals: None,Stated [Primary Care Provider] - 1-2 days Time of Disposition: 21:16
== END 2017-07-13 21:24 | disposition home or self-care (01) ==
LOC: EC 20:56
DX: J02.0 Streptococcal pharyngitis (principal); K12.2 Cellulitis and abscess of mouth; F17.200 Nicotine dependence, unspecified, uncomplicated; Z91.09 Other allergy status, other than to drugs and biological substances; Z91.013 Allergy to seafood
CPT/HCPCS: 99282; 96372; J1100

== ENCOUNTER 2017-10-01 12:31 | Emergency (ER) | payer OTHER ==
[2017-10-01 12:49] VITALS: BP 118/77; PULSE 89; RESP 18; TEMP 97.9
[2017-10-01] MEDS ORDERED: KETOROLAC 30 MG/ML 1 ML VIAL IVP STA (13:19)
--- NOTE | 2017-10-01 13:24 | ED ---
General Adult HPI - General Chief complaint: Back Pain/Injury Stated complaint: Abd Pain, Back Pain Time Seen by Provider: 10/01/17 13:02 Source: patient, RN notes reviewed Mode of arrival: ambulatory Limitations: no limitations - History of Present Illness Initial comments: This is a 31-year-old female who presents with a chief complaint of headache and left shoulder pain. The symptoms began simultaneously and abruptly about 3 days ago. She states she has also felt nauseous, but denies vomiting, diarrhea and abdominal pain. She denies any injury to the shoulder. The shoulder pain is worse with movement, but is still painful at rest. Her headache is located in the frontal and temporal regions and is constant. She denies visual changes or injury. She recalls going through stages of feeling "hot then cold" over the last 3 days, but denies fever. - Related Data Home Medications Medication Instructions Recorded Confirmed No Known Home Medications [No 10/01/17 10/01/17 Known Home Medications] Allergies Allergy/AdvReac Type Severity Reaction Status Date / Time fish derived Allergy Unknown Verified 10/01/17 13:03 ivory soap Allergy Unknown Uncoded 10/01/17 12:49 Review of Systems ROS Statement: Those systems with pertinent positive or pertinent negative responses have been documented in the HPI. ROS Other: All systems not noted in ROS Statement are negative. Past Medical History Past Medical History: Renal Disease Additional Past Medical History / Comment(s): KIDNEY STONES, colitis, migraines History of Any Multi-Drug Resistant Organisms: None Reported Past Surgical History: Section, Tubal Ligation, Uterine Ablation Additional Past Surgical History / Comment(s): PT STATES SHE HAS HAD A ROBOTIC SURGERY FOR ENDOMETRIOSIS; KIDNEY STENT; BLADDER STENT; LITHOTRIPSY. uterine ablation. Past Anesthesia/Blood Transfusion Reactions: No Reported Reaction Past Psychological History: ADD/ADHD, Bipolar, Depression Smoking Status: Current every day smoker Past Alcohol Use History: None Reported Past Drug Use History: None Reported - Past Family History Father Family Medical History: Diabetes Mellitus Mother Family Medical History: Unable to Obtain Additional Family Medical History / Comment(s): PT STATES SHE DOES NOT HAVE ANYTHING MUCH TO DO WITH HER MOTHER. General Exam Limitations: no limitations General appearance: alert, in no apparent distress Head exam: Present: atraumatic, normocephalic, normal inspection ENT exam: Present: normal oropharynx, mucous membranes moist, other (tender with palpation of the frontal and maxillary sinuses.) Neck exam: Present: other (left non-tender tonsillar lymphadenopathy) Respiratory exam: Present: normal lung sounds bilaterally. Absent: respiratory distress, wheezes, rales, rhonchi, stridor Cardiovascular Exam: Present: regular rate, normal rhythm, normal heart sounds. Absent: systolic murmur, diastolic murmur, rubs, gallop, clicks GI/Abdominal exam: Present: soft, normal bowel sounds. Absent: distended, tenderness, guarding, rebound, rigid Extremities exam: Present: normal inspection, full ROM, normal capillary refill , other (pain felt in the left scapular area with abduction of the left shoulder above 90 degrees.). Absent: tenderness, pedal edema, joint swelling, calf tenderness Back exam: Present: normal inspection Neurological exam: Present: alert, oriented X3, CN II-XII intact Psychiatric exam: Present: normal affect, normal mood Skin exam: Present: warm, dry, intact, normal color. Absent: rash Course Vital Signs 10/01/17 12:47 Temperature 97.9 F Pulse Rate 89 Respiratory 18 Rate Blood Pressure 118/77 O2 Sat by Pulse 99 Oximetry Medical Decision Making - Medical Decision Making 31-year-old female presented for multiple complaints. Patient is leaving AGAINST MEDICAL ADVICE. Patient states she is emergency that she needs to leave the hospital for. Disposition Clinical Impression: Shoulder pain, Lymphadenopathy, URI (upper respiratory infection) Disposition: Left Against Medical Advice Condition: Stable Referrals: None,Stated [Primary Care Provider] - 1-2 days Time of Disposition: 13:30
== END 2017-10-01 13:29 | disposition left against medical advice (07) ==
LOC: EC 12:31
DX: R59.1 Generalized enlarged lymph nodes (principal); M25.512 Pain in left shoulder; J06.9 Acute upper respiratory infection, unspecified; F17.200 Nicotine dependence, unspecified, uncomplicated; Z87.442 Personal history of urinary calculi; Z87.19 Personal history of other diseases of the digestive system; Z53.29 Procedure and treatment not carried out because of patient's decision for other reasons; Z91.09 Other allergy status, other than to drugs and biological substances; Z91.013 Allergy to seafood
CPT/HCPCS: 99283

== ENCOUNTER 2018-02-10 17:38 | Emergency (ER) | payer OTHER ==
[2018-02-10 18:01] VITALS: BP 120/88; PULSE 95; RESP 16; TEMP 97.8
[2018-02-10] MEDS ORDERED: KETOROLAC 60 MG/2 ML VIAL IM STA (18:41)
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
== END 2018-02-10 18:58 | disposition home or self-care (01) ==
LOC: EC 17:38
DX: S76.311A Strain of muscle, fascia and tendon of the posterior muscle group at thigh level, right thigh, initial encounter (principal); F17.200 Nicotine dependence, unspecified, uncomplicated; Z91.013 Allergy to seafood; Z91.048 Other nonmedicinal substance allergy status; V44.6XXA Car passenger injured in collision with heavy transport vehicle or bus in traffic accident, initial encounter; Y92.89 Other specified places as the place of occurrence of the external cause
CPT/HCPCS: 99283; 96372; J1885

== ENCOUNTER 2018-06-17 15:43 | Emergency (ER) | payer OTHER ==
[2018-06-17 15:56] VITALS: BP 137/77; PULSE 90; RESP 18; TEMP 97.6
[2018-06-17] MEDS ORDERED: IBUPROFEN 600 MG TAB PO STA (16:12)
[2018-06-17] MEDS ORDERED: PENICILLIN V POTASSIUM 250 MG TAB PO STA (16:13)
--- NOTE | 2018-06-17 16:23 | ED ---
ENT HPI - General Chief complaint: Dental/Oral Stated complaint: dental & facial pain Time Seen by Provider: 06/17/18 16:00 Source: patient, RN notes reviewed Mode of arrival: ambulatory Limitations: no limitations - History of Present Illness Initial comments: This is a 32-year-old female who presents to the emergency department with chief complaint of dental pain. Patient states that she broke a right upper tooth 1 month ago. She states over the past 2 weeks she has been experiencing pain. Denies any swelling or drainage. Denies any fevers or chills. Denies chest pain or shortness breath, abdominal pain, nausea or vomiting. Patient states that she does not have dental insurance and has been unable to follow-up with the dentist. - Related Data Home Medications Medication Instructions Recorded Confirmed Ibuprofen [Motrin] 800 mg PO Q6H PRN 02/10/18 02/10/18 Previous Rx's Medication Instructions Recorded Ibuprofen [Motrin] 600 mg PO Q6HR PRN #20 tab 02/10/18 Ibuprofen 600 mg PO Q6HR #20 tablet 06/17/18 Penicillin V Potassium [Pen Vee K] 500 mg PO QID 10 Days tab 06/17/18 Allergies Allergy/AdvReac Type Severity Reaction Status Date / Time fish derived Allergy Unknown Verified 02/10/18 18:45 ivory soap Allergy Rash/Hives Uncoded 02/10/18 18:45 Review of Systems ROS Statement: Those systems with pertinent positive or pertinent negative responses have been documented in the HPI. ROS Other: All systems not noted in ROS Statement are negative. Past Medical History Past Medical History: Renal Disease Additional Past Medical History / Comment(s): KIDNEY STONES, colitis, migraines , endometriosis, History of Any Multi-Drug Resistant Organisms: None Reported Past Surgical History: Ablation, Section, Tubal Ligation, Uterine Ablation Additional Past Surgical History / Comment(s): PT STATES SHE HAS HAD A ROBOTIC SURGERY FOR ENDOMETRIOSIS; KIDNEY STENT; BLADDER STENT; LITHOTRIPSY. uterine ablation. Past Anesthesia/Blood Transfusion Reactions: No Reported Reaction Past Psychological History: ADD/ADHD, Bipolar, Depression Smoking Status: Current every day smoker Past Alcohol Use History: None Reported Past Drug Use History: None Reported - Past Family History Father Family Medical History: Diabetes Mellitus Mother Family Medical History: Unable to Obtain Additional Family Medical History / Comment(s): PT STATES SHE DOES NOT HAVE ANYTHING MUCH TO DO WITH HER MOTHER. General Exam - General Exam Comments Initial Comments: General: Awake and alert, well-developed; in no apparent distress. HEENT: Head atraumatic, normocephalic. Pupils are equal, round and reactive to light. Extraocular movements intact. Oropharynx moist without erythema. Tooth # 5 is fractured and surrounding gumline is tender. No masses or areas of fluctuance are noted. Neck: Supple. Normal ROM. Cardiovascular: Regular rate and rhythm. No murmurs, rubs or gallops. Chest symmetrical. Respiratory: Lungs clear to auscultation bilaterally. No wheezes, rales or rhonchi. Normal respiratory effort with no use of accessory muscles. Musculoskeletal: Normal ROM, no tenderness bilateral upper and lower extremities. Ambulating normally. Skin: [place], warm and dry without rashes or lesions. Neurological: Alert and oriented x3. CN II-XII grossly intact. Speech is fluent and answers are appropriate. No focal neuro deficits. Psychiatric: Normal mood and affect. No overt signs of depression or anxiety noted. Limitations: no limitations Course Vital Signs 06/17/18 15:55 Temperature 97.6 F Pulse Rate 90 Respiratory 18 Rate Blood Pressure 137/77 O2 Sat by Pulse 97 Oximetry Medical Decision Making - Medical Decision Making This is a 32-year-old female who presents to the emergency department with chief complaint of dental pain. Patient reports sustaining a fractured tooth 1 month ago. She states that over the past 2 weeks she is now experiencing pain. On physical examination, tooth #5 is fractured. Surrounding gumline is tender on palpation. No masses or areas of fluctuance are noted. Patient will be started on a course of ibuprofen and penicillin VK. Patient does not have dental insurance and therefore has not followed up with a dentist. She is provided with contact information for a community dental clinic. Patient is in no acute distress and will be discharged home at this time. She is in agreement with plan and voices understanding. All questions were answered. Disposition Clinical Impression: Fracture of tooth, Toothache Disposition: HOME SELF-CARE Condition: Good Instructions: Toothache (ED) Additional Instructions: Please take medications as prescribed. Please follow up with primary care provider within 1-2 days. Return to emergency department if symptoms should worsen or any concerns arise. Please follow up with the [facility] dental [facility]. [facility] [place] [address]. Phone number for new patients or [phone] for existing patients. Prescriptions: Ibuprofen 600 mg PO Q6HR #20 tablet Penicillin V Potassium [Pen Vee K] 500 mg PO QID 10 Days tab Is patient prescribed a controlled substance at d/c from ED?: No Referrals: None,Stated [Primary Care Provider] - 1-2 days Time of Disposition: 16:22
== END 2018-06-17 16:43 | disposition home or self-care (01) ==
LOC: EC 15:43
DX: S02.5XXA Fracture of tooth (traumatic), initial encounter for closed fracture (principal); F17.200 Nicotine dependence, unspecified, uncomplicated; Z91.013 Allergy to seafood; Z91.09 Other allergy status, other than to drugs and biological substances
CPT/HCPCS: 99283

== ENCOUNTER 2018-07-31 15:00 | Emergency (ER) | payer OTHER ==
[2018-07-31 15:11] VITALS: PULSE 94; RESP 18; TEMP 98.2
[2018-07-31 15:12] VITALS: BP 134/84
[2018-07-31] MEDS ORDERED: ONDANSETRON 4 MG/2 ML VIAL IVP STA (15:38)
[2018-07-31] MEDS ORDERED: HYDROmorphone 1 MG/ML 1 ML SYRINGE IVP STA (15:38)
[2018-07-31] MEDS ORDERED: SODIUM CHLORIDE 0.9% 1,000 ML IV STA (15:38)
--- NOTE | 2018-07-31 15:44 | ED ---
General Adult HPI - General Chief complaint: Abdominal Pain Stated complaint: Abd pain Time Seen by Provider: 07/31/18 15:24 Source: patient, RN notes reviewed, old records reviewed Mode of arrival: ambulatory Limitations: no limitations - History of Present Illness Initial comments: Chief complaint and history of present illness this is a 32-year-old female here for complaint of right flank and right lower quadrant pain ongoing for 3 days. Patient reports she's had a past history of kidney stones several times in the past - Related Data Home Medications Medication Instructions Recorded Confirmed Ibuprofen [Motrin] 800 mg PO Q6H PRN 02/10/18 02/10/18 Previous Rx's Medication Instructions Recorded Ibuprofen [Motrin] 600 mg PO Q6HR PRN #20 tab 02/10/18 Ibuprofen 600 mg PO Q6HR #20 tablet 06/17/18 Penicillin V Potassium [Pen Vee K] 500 mg PO QID 10 Days tab 06/17/18 Ciprofloxacin HCl [Cipro] 500 mg PO Q12HR #14 tablet 07/31/18 metroNIDAZOLE [Flagyl] 500 mg PO QID #28 tab 07/31/18 Allergies Allergy/AdvReac Type Severity Reaction Status Date / Time fish derived Allergy Unknown Verified 07/31/18 15:07 ivory soap Allergy Rash/Hives Uncoded 02/10/18 18:45 Review of Systems ROS Statement: Those systems with pertinent positive or pertinent negative responses have been documented in the HPI. Review of systems. No headache or visual acuity changes denies any sore throat chest pain shortness of breath. The patient reports nausea no vomiting no diarrhea. Decreased frequency of urination. Right-sided back pain. No neuro deficits. All systems are reviewed. Patient's past medical problems significant for having had kidney stones on 3 occasions. She also has a history of surgeries include a ureteral stent. She' s had tubal ligation, and uterine ablation. Patient's family history significant for breast cancer. Patient has ALLERGIES to Ivory soap and some fish derived products. She does smoke she was strongly encouraged to stop she denies alcohol use. ROS Other: All systems not noted in ROS Statement are negative. Past Medical History Past Medical History: Renal Disease Additional Past Medical History / Comment(s): KIDNEY STONES, colitis, migraines , endometriosis, History of Any Multi-Drug Resistant Organisms: None Reported Past Surgical History: Ablation, Section, Tubal Ligation, Uterine Ablation Additional Past Surgical History / Comment(s): PT STATES SHE HAS HAD A ROBOTIC SURGERY FOR ENDOMETRIOSIS; KIDNEY STENT; BLADDER STENT; LITHOTRIPSY. uterine ablation. Past Anesthesia/Blood Transfusion Reactions: No Reported Reaction Past Psychological History: ADD/ADHD, Bipolar, Depression Smoking Status: Current every day smoker Past Alcohol Use History: None Reported Past Drug Use History: None Reported - Past Family History Father Family Medical History: Diabetes Mellitus Mother Family Medical History: Unable to Obtain Additional Family Medical History / Comment(s): PT STATES SHE DOES NOT HAVE ANYTHING MUCH TO DO WITH HER MOTHER. General Exam - General Exam Comments Initial Comments: General: The patient is awake and alert, here with a chief complaint of right flank and right lower quadrant abdominal pain for over 3 days. Decreased frequency of urination. Nausea but no vomiting no diarrhea. No fever. Vital signs shows temperature 98.2 pulse 94 story rate 18 pulse ox on percent room air blood pressure 134/84 Eye: Pupils are equal, round and reactive to light, extra-ocular movements are intact ; there is normal conjunctiva bilaterally. No signs of icterus. Ears, nose, mouth and throat: There are moist mucous membranes and no oral lesions. Neck: The neck is supple, there is no tenderness, no anterior cervical lymphadenopathy. Thyroid not enlarged. Cardiovascular: There is a regular rate and rhythm. No murmur, rub or gallop is appreciated. Respiratory: Lungs are clear to auscultation, respirations are non-labored, breath sounds are equal. No wheezes, stridor, rales, or rhonchi. Gastrointestinal: Soft, non-distended, non-tender abdomen without masses or organomegaly noted. There is no rebound or guarding present. No CVA tenderness. Bowel sounds are unremarkable. No flank rash. Back: There is no tenderness to palpation in the midline. There is no obvious deformity. No rashes noted. Musculoskeletal: Normal ROM, no tenderness, There is no pedal edema. There is no calf tenderness or swelling. Sensation intact. Neurological: Patient denies any numbness tingling or dizziness. No gross neuro neurological abnormalities appreciated. Skin: Skin is warm and dry and no rashes or lesions are noted. Psychiatric: Cooperative, Limitations: no limitations Course Vital Signs 07/31/18 15:08 Temperature 98.2 F Pulse Rate 94 Respiratory 18 Rate Blood Pressure 134/84 O2 Sat by Pulse 100 Oximetry Medical Decision Making - Medical Decision Making Medical decision making; this is a 32-year-old female who thinks she had a kidney stone on the right side for the past 3 days. Patient complains of pain nausea and none vomiting no chills no fever. White count 9.9 hemoglobin 14 hematocrit of 49. Potassium 4.3 with a BUN 12 creatinine 0.63 with a GFR greater than 90. Glucose is 96. Urine shows 2 reds 14 whites moderate leuk esterase. Urine test negative. Patient had x -ray of the abdomen reviewed by radiologist Dr. Lemus, he reports a right nephrolithiasis 8 mm stone similar to in the past. CT of the abdomen without contrast was done to rule out possibility of a right- sided kidney stone. The radiologist reports that there is a nonobstructing right renal calculus. No evidence of any renal obstruction. He reports is a normal-appearing appendix and no sign of acute abdomen. He also mentions a subpleural nodule which the patient will be advised to continue to follow-up with with her family physician. We discussed the findings patient also mentioned that she had aspirin told she might have an episode of diverticulitis in the past. Patient's urine was reviewed cultures pending. The patient be placed on Cipro 1 tablet twice day for 1 week. Patient also be placed on Flagyl. Patient advised follow-up family physician. Patient reports the pain was significantly less on discharge. - Lab Data Result diagrams: 07/31/18 15:20 07/31/18 15:20 Lab Results 07/31/18 07/31/18 07/31/18 Range/Units 15:20 15:20 16:15 WBC 9.9 (3.8-10.6) k/uL RBC 4.55 (3.80-5.40) m/uL Hgb 14.3 (11.4-16.0) gm/dL Hct 44.9 (34.0-46.0) % MCV 98.5 (80.0-100.0) fL MCH 31.5 (25.0-35.0) pg MCHC 32.0 (31.0-37.0) g/dL RDW 12.5 (11.5-15.5) % Plt Count 269 (150-450) k/uL Neutrophils % 66 % Lymphocytes % 24 % Monocytes % 5 % Eosinophils % 2 % Basophils % 1 % Neutrophils # 6.5 (1.3-7.7) k/uL Lymphocytes # 2.4 (1.0-4.8) k/uL Monocytes # 0.5 (0-1.0) k/uL Eosinophils # 0.2 (0-0.7) k/uL Basophils # 0.1 (0-0.2) k/uL Sodium 142 (137-145) mmol/L Potassium 4.3 (3.5-5.1) mmol/L Chloride 110 H (98-107) mmol/L Carbon Dioxide 24 (22-30) mmol/L Anion Gap 8 mmol/L BUN 12 (7-17) mg/dL Creatinine 0.63 (0.52-1.04) mg/dL Est GFR (CKD-EPI)AfAm >90 (>60 ml/min/1.73 sqM) Est GFR (CKD-EPI)NonAf >90 (>60 ml/min/1.73 sqM) Glucose 96 (74-99) mg/dL Calcium 9.1 (8.4-10.2) mg/dL Total Bilirubin 0.5 (0.2-1.3) mg/dL AST 24 (14-36) U/L ALT 33 (9-52) U/L Alkaline Phosphatase 35 L (38-126) U/L Total Protein 7.0 (6.3-8.2) g/dL Albumin 3.9 (3.5-5.0) g/dL Amylase 39 (30-110) U/L Lipase 97 (23-300) U/L Urine Color Yellow Urine Appearance Cloudy H (Clear) Urine pH 6.5 (5.0-8.0) Ur Specific [place] 1.017 (1.001-1.035) Urine Protein Negative (Negative) Urine Glucose (UA) Negative (Negative) Urine Ketones Negative (Negative) Urine Blood Trace H (Negative) Urine Nitrite Negative (Negative) Urine Bilirubin Negative (Negative) Urine Urobilinogen 2.0 (<2.0) mg/dL Ur Leukocyte Esterase Moderate H (Negative) Urine RBC 2 (0-5) /hpf Urine WBC 14 H (0-5) /hpf Ur Squamous Epith Cells 26 H (0-4) /hpf Urine Bacteria Rare H (None) /hpf Urine Mucus Rare H (None) /hpf Urine HCG, Qual (Not Detectd) 07/31/18 Range/Units 16:15 WBC (3.8-10.6) k/uL RBC (3.80-5.40) m/uL Hgb (11.4-16.0) gm/dL Hct (34.0-46.0) % MCV (80.0-100.0) fL MCH (25.0-35.0) pg MCHC (31.0-37.0) g/dL RDW (11.5-15.5) % Plt Count (150-450) k/uL Neutrophils % % Lymphocytes % % Monocytes % % Eosinophils % % Basophils % % Neutrophils # (1.3-7.7) k/uL Lymphocytes # (1.0-4.8) k/uL Monocytes # (0-1.0) k/uL Eosinophils # (0-0.7) k/uL Basophils # (0-0.2) k/uL Sodium (137-145) mmol/L Potassium (3.5-5.1) mmol/L Chloride (98-107) mmol/L Carbon Dioxide (22-30) mmol/L Anion Gap mmol/L BUN (7-17) mg/dL Creatinine (0.52-1.04) mg/dL Est GFR (CKD-EPI)AfAm (>60 ml/min/1.73 sqM) Est GFR (CKD-EPI)NonAf (>60 ml/min/1.73 sqM) Glucose (74-99) mg/dL Calcium (8.4-10.2) mg/dL Total Bilirubin (0.2-1.3) mg/dL AST (14-36) U/L ALT (9-52) U/L Alkaline Phosphatase (38-126) U/L Total Protein (6.3-8.2) g/dL Albumin (3.5-5.0) g/dL Amylase (30-110) U/L Lipase (23-300) U/L Urine Color Urine Appearance (Clear) Urine pH (5.0-8.0) Ur Specific [place] (1.001-1.035) Urine Protein (Negative) Urine Glucose (UA) (Negative) Urine Ketones (Negative) Urine Blood (Negative) Urine Nitrite (Negative) Urine Bilirubin (Negative) Urine Urobilinogen (<2.0) mg/dL Ur Leukocyte Esterase (Negative) Urine RBC (0-5) /hpf Urine WBC (0-5) /hpf Ur Squamous Epith Cells (0-4) /hpf Urine Bacteria (None) /hpf Urine Mucus (None) /hpf Urine HCG, Qual Not Detected (Not Detectd) Disposition Clinical Impression: UTI (urinary tract infection) Disposition: HOME SELF-CARE Condition: Fair Instructions: Urinary Tract Infection in Women (ED) Additional Instructions: Patient's fluids. Take Cipro twice a day for 1 week and Flagyl 3 times a day for one week. Follow-up with family physician for further evaluation and repeat chest x-ray as needed. Return emergency room as needed Prescriptions: Ciprofloxacin HCl [Cipro] 500 mg PO Q12HR #14 tablet metroNIDAZOLE [Flagyl] 500 mg PO QID #28 tab Is patient prescribed a controlled substance at d/c from ED?: No Referrals: Boaz Pantoja MD [Primary Care Provider] - 1-2 days
[2018-07-31 15:59] LABS: Basophils # (A) 0.1 k/uL (0-0.2); Basophils % (A) 1 %; Eosinophils # (A) 0.2 k/uL (0-0.7); Eosinophils % (A) 2 %; HCT 44.9 % (34.0-46.0); HGB 14.3 gm/dL (11.4-16.0); Lymphocytes # (A) 2.4 k/uL (1.0-4.8); Lymphocytes % (A) 24 %; MCH 31.5 pg (25.0-35.0); MCV 98.5 fL (80.0-100.0); Mean Platelet Volume 7.7; Monocytes # (A) 0.5 k/uL (0-1.0); Monocytes % (A) 5 %; Neutrophils # (A) 6.5 k/uL (1.3-7.7); Neutrophils % (A) 66 %; Platelet Count 269 k/uL (150-450); RBC 4.55 m/uL (3.80-5.40); RDW 12.5 % (11.5-15.5); WBC 9.9 k/uL (3.8-10.6)
[2018-07-31 16:28] LABS: Appearance,Urine Cloudy (Clear); Bacteria,Urine Rare /hpf; Bilirubin,Urine Negative (Negative); Blood,Urine Trace (Negative); Color,Urine Yellow; Glucose,Urine (UA) Negative (Negative); Ketones,Urine Negative (Negative); Leukocyte Esterase,Urine Moderate (Negative); Mucus,Urine Rare /hpf; Nitrite,Urine Negative (Negative); PH, Urine 6.5 (5.0-8.0); Protein,Urine Negative (Negative); RBC,Urine 2 /hpf (0-5); Specific Gravity,Urine 1.017 (1.001-1.035); Squamous Epithelial Cell,Urine 26 /hpf (0-4); WBC,Urine 14 /hpf (0-5)
--- NOTE | 2018-07-31 16:33 | XR ---
2 view abdomen HISTORY: Abdomen pain 2 views the abdomen correlated to prior abdomen 12/13/[address] abdomen pelvis 11/22/2015 Lung bases are clear. There is no evident pneumoperitoneum or bowel obstruction. There is a calcifica tion present in the right upper quadrant similar to prior exam measuring approximately 8 to 9 mm whic h is within the right kidney. Fallopian tubal ligation clips are present. IMPRESSION: Right-sided nephrolithiasis.
[2018-07-31 16:38] LABS: ALT 33 U/L (9-52); AST 24 U/L (14-36); Albumin 3.9 g/dL (3.5-5.0); Alkaline Phosphatase 35 U/L (38-126); Amylase 39 U/L (30-110); Anion Gap 8 mmol/L; Blood Urea Nitrogen 12 mg/dL (7-17); Calcium 9.1 mg/dL (8.4-10.2); Carbon Dioxide 24 mmol/L (22-30); Chloride 110 mmol/L (98-107); Glucose 96 mg/dL (74-99); Lipase 97 U/L (23-300); Potassium 4.3 mmol/L (3.5-5.1); Sodium 142 mmol/L (137-145); Total Bilirubin 0.5 mg/dL (0.2-1.3)
--- NOTE | 2018-07-31 18:36 | CT ---
EXAMINATION TYPE: CT abdomen pelvis wo con DATE OF EXAM: 07/31/2018 COMPARISON: 11/22/2015 HISTORY: Right lower quadrant pain, history of renal stones. CT DLP: 591.8 mGycm Automated exposure control for dose reduction was used. TECHNIQUE: Helical acquisition of images was performed from the lung bases through the pelvis. FINDINGS: There is a 5 mm low-density nodule in the subpleural posterior right lower lobe. There is no pleural effusion. There is no pericardial effusion. Liver and gallbladder appear normal. Bile ducts are not d ilated. Spleen and pancreas appear normal. There is no adrenal mass. Kidneys have normal size and contour. There is 1 cm calculus in the lateral right kidney. There is no hydronephrosis. Ureters are not dilated. There is no retroperitoneal adeno jerson. Bladder distends smoothly. Uterus is anteverted. There is no free fluid in the pelvis. There i s no inguinal hernia. There are clips from tubal ligation. The appendix appears normal. There is no m esenteric edema or adenopathy. I see no intestinal wall thickening. There is no sign of a bowel obstr uction. The bony pelvis is intact. Lumbar spine is intact. Disc spaces are fairly normal. There is no compression fracture. IMPRESSION: NONOBSTRUCTING RIGHT RENAL CALCULUS IS INCREASED IN SIZE COMPARED TO OLD CT SCAN. NO RENAL OBSTRUCTIO N. NORMAL APPENDIX. NO SIGN OF ACUTE ABDOMEN AND PELVIS. RIGHT LOWER LOBE SUBPLEURAL TINY NODULE IS I NCOMPLETELY EVALUATED. THIS IS OF DOUBTFUL SIGNIFICANCE.
[2018-07-31] MEDS ORDERED: metroNIDAZOLE 500 MG TAB PO STA (20:05)
[2018-07-31] MEDS ORDERED: CIPROFLOXACIN HCL 500 MG TAB PO STA (20:06)
== END 2018-07-31 20:19 | disposition home or self-care (01) ==
LOC: EC 15:00
DX: N39.0 Urinary tract infection, site not specified (principal); N20.0 Calculus of kidney; F17.200 Nicotine dependence, unspecified, uncomplicated; Z91.09 Other allergy status, other than to drugs and biological substances; Z91.013 Allergy to seafood
CPT/HCPCS: 36415; 80053; 82150; 83690; 85025; 81001; 81025; 87086; 74019; 74176; 99285; 96374; 96375; 96361 ×4; J2405; J1170; 87077; 87186

== ENCOUNTER 2018-08-31 16:17 | Emergency (ER) | payer OTHER ==
[2018-08-31] MEDS ORDERED: SODIUM CHLORIDE 0.9% 1,000 ML IV STA (16:57)
[2018-08-31] MEDS ORDERED: KETOROLAC 30 MG/ML 1 ML VIAL IVP STA (17:16)
[2018-08-31] MEDS ORDERED: ONDANSETRON 4 MG/2 ML VIAL IVP STA (17:16)
--- NOTE | 2018-08-31 17:25 | ED ---
General Adult HPI - General Chief complaint: Recheck/Abnormal Lab/Rx Stated complaint: ABDOMINAL PAIN, Hx KIDNEY STONES/ FAILURE Time Seen by Provider: 08/31/18 16:56 Source: patient, RN notes reviewed Mode of arrival: ambulatory Limitations: no limitations - History of Present Illness Initial comments: 32-year-old female presents emergency Department chief complaint the left flank pain. Patient states that this pain has been present last 3 days. Patient states that the pain feels like a kidney stone. She states she believes that she had a kidney stone last time she was here. Patient denies fever, chills. She states it hurts to urinate states it feels like razor blades. Patient denies any chest pain, shortness breath, headache, dizziness, diarrhea constipation. Patient denies any chance . - Related Data Previous Rx's Medication Instructions Recorded Ibuprofen [Motrin] 600 mg PO Q6HR PRN #20 tab 02/10/18 Ibuprofen [Motrin] 600 mg PO Q8HR PRN #30 tab 08/31/18 Allergies Allergy/AdvReac Type Severity Reaction Status Date / Time fish derived Allergy Unknown Verified 08/31/18 17:22 ivory soap Allergy Rash/Hives Uncoded 08/31/18 16:21 Review of Systems ROS Statement: Those systems with pertinent positive or pertinent negative responses have been documented in the HPI. ROS Other: All systems not noted in ROS Statement are negative. Past Medical History Past Medical History: Renal Disease Additional Past Medical History / Comment(s): KIDNEY STONES, colitis, migraines , endometriosis, History of Any Multi-Drug Resistant Organisms: None Reported Past Surgical History: Ablation, Section, Tubal Ligation, Uterine Ablation Additional Past Surgical History / Comment(s): PT STATES SHE HAS HAD A ROBOTIC SURGERY FOR ENDOMETRIOSIS; KIDNEY STENT; BLADDER STENT; LITHOTRIPSY. uterine ablation. Past Anesthesia/Blood Transfusion Reactions: No Reported Reaction Past Psychological History: ADD/ADHD, Bipolar, Depression Smoking Status: Current every day smoker Past Alcohol Use History: None Reported Past Drug Use History: None Reported - Past Family History Father Family Medical History: Diabetes Mellitus Mother Family Medical History: Unable to Obtain Additional Family Medical History / Comment(s): PT STATES SHE DOES NOT HAVE ANYTHING MUCH TO DO WITH HER MOTHER. General Exam Limitations: no limitations General appearance: alert, in no apparent distress Head exam: Present: atraumatic, normocephalic, normal inspection Respiratory exam: Present: normal lung sounds bilaterally. Absent: respiratory distress, wheezes, rales, rhonchi, stridor Cardiovascular Exam: Present: regular rate, normal rhythm, normal heart sounds. Absent: systolic murmur, diastolic murmur, rubs, gallop, clicks GI/Abdominal exam: Present: soft, tenderness (Mild left-sided), normal bowel sounds. Absent: distended, guarding, rebound, rigid Back exam: Present: CVA tenderness (L) (Exaggerated). Absent: CVA tenderness (R ) Neurological exam: Present: alert, oriented X3, CN II-XII intact Skin exam: Present: warm, dry, intact, normal color. Absent: rash Course Vital Signs 08/31/18 16:19 Temperature 98.2 F Pulse Rate 86 Respiratory 18 Rate Blood Pressure 123/82 O2 Sat by Pulse 99 Oximetry Medical Decision Making - Medical Decision Making 32-year-old female presented from for left flank pain. Patient lab work, x-ray and urinalysis with no acute findings. Patient that she had a kidney stone though prior CT shows stable right calculus which has been stable from 2 years ago. Patient will be discharged with ibuprofen, return parameters were discussed. - Lab Data Result diagrams: 08/31/18 17:17 08/31/18 17:17 Lab Results 08/31/18 08/31/18 08/31/18 Range/Units 17:17 17:17 17:17 WBC 8.0 (3.8-10.6) k/uL RBC 4.74 (3.80-5.40) m/uL Hgb 15.1 (11.4-16.0) gm/dL Hct 45.7 (34.0-46.0) % MCV 96.4 (80.0-100.0) fL MCH 31.9 (25.0-35.0) pg MCHC 33.1 (31.0-37.0) g/dL RDW 12.7 (11.5-15.5) % Plt Count 258 (150-450) k/uL Neutrophils % 58 % Lymphocytes % 32 % Monocytes % 4 % Eosinophils % 3 % Basophils % 1 % Neutrophils # 4.6 (1.3-7.7) k/uL Lymphocytes # 2.5 (1.0-4.8) k/uL Monocytes # 0.3 (0-1.0) k/uL Eosinophils # 0.2 (0-0.7) k/uL Basophils # 0.1 (0-0.2) k/uL Sodium 142 (137-145) mmol/L Potassium 4.2 (3.5-5.1) mmol/L Chloride 109 H (98-107) mmol/L Carbon Dioxide 24 (22-30) mmol/L Anion Gap 9 mmol/L BUN 9 (7-17) mg/dL Creatinine 0.70 (0.52-1.04) mg/dL Est GFR (CKD-EPI)AfAm >90 (>60 ml/min/1.73 sqM) Est GFR (CKD-EPI)NonAf >90 (>60 ml/min/1.73 sqM) Glucose 87 (74-99) mg/dL Calcium 10.0 (8.4-10.2) mg/dL Total Bilirubin 1.0 (0.2-1.3) mg/dL AST 24 (14-36) U/L ALT 32 (9-52) U/L Alkaline Phosphatase 48 (38-126) U/L Total Protein 7.6 (6.3-8.2) g/dL Albumin 4.7 (3.5-5.0) g/dL Amylase 51 (30-110) U/L Lipase 129 (23-300) U/L Urine Color Yellow Urine Appearance Clear (Clear) Urine pH 6.5 (5.0-8.0) Ur Specific [place] 1.026 (1.001-1.035) Urine Protein Trace H (Negative) Urine Glucose (UA) Negative (Negative) Urine Ketones Trace H (Negative) Urine Blood Moderate H (Negative) Urine Nitrite Negative (Negative) Urine Bilirubin Negative (Negative) Urine Urobilinogen 3.0 (<2.0) mg/dL Ur Leukocyte Esterase Small H (Negative) Urine RBC 7 H (0-5) /hpf Urine WBC 2 (0-5) /hpf Ur Squamous Epith Cells 3 (0-4) /hpf Urine Mucus Many H (None) /hpf Urine HCG, Qual (Not Detectd) 08/31/18 Range/Units 17:17 WBC (3.8-10.6) k/uL RBC (3.80-5.40) m/uL Hgb (11.4-16.0) gm/dL Hct (34.0-46.0) % MCV (80.0-100.0) fL MCH (25.0-35.0) pg MCHC (31.0-37.0) g/dL RDW (11.5-15.5) % Plt Count (150-450) k/uL Neutrophils % % Lymphocytes % % Monocytes % % Eosinophils % % Basophils % % Neutrophils # (1.3-7.7) k/uL Lymphocytes # (1.0-4.8) k/uL Monocytes # (0-1.0) k/uL Eosinophils # (0-0.7) k/uL Basophils # (0-0.2) k/uL Sodium (137-145) mmol/L Potassium (3.5-5.1) mmol/L Chloride (98-107) mmol/L Carbon Dioxide (22-30) mmol/L Anion Gap mmol/L BUN (7-17) mg/dL Creatinine (0.52-1.04) mg/dL Est GFR (CKD-EPI)AfAm (>60 ml/min/1.73 sqM) Est GFR (CKD-EPI)NonAf (>60 ml/min/1.73 sqM) Glucose (74-99) mg/dL Calcium (8.4-10.2) mg/dL Total Bilirubin (0.2-1.3) mg/dL AST (14-36) U/L ALT (9-52) U/L Alkaline Phosphatase (38-126) U/L Total Protein (6.3-8.2) g/dL Albumin (3.5-5.0) g/dL Amylase (30-110) U/L Lipase (23-300) U/L Urine Color Urine Appearance (Clear) Urine pH (5.0-8.0) Ur Specific [place] (1.001-1.035) Urine Protein (Negative) Urine Glucose (UA) (Negative) Urine Ketones (Negative) Urine Blood (Negative) Urine Nitrite (Negative) Urine Bilirubin (Negative) Urine Urobilinogen (<2.0) mg/dL Ur Leukocyte Esterase (Negative) Urine RBC (0-5) /hpf Urine WBC (0-5) /hpf Ur Squamous Epith Cells (0-4) /hpf Urine Mucus (None) /hpf Urine HCG, Qual Not Detected (Not Detectd) Disposition Clinical Impression: Left flank pain Disposition: HOME SELF-CARE Condition: Stable Instructions: Abdominal Pain (ED) Additional Instructions: Please return to the Emergency Department if symptoms worsen or any other concerns. Prescriptions: Ibuprofen [Motrin] 600 mg PO Q8HR PRN #30 tab PRN Reason: Pain Is patient prescribed a controlled substance at d/c from ED?: No Referrals: Boaz Pantoja MD [Primary Care Provider] - 1-2 days Time of Disposition: 19:34
[2018-08-31 17:58] LABS: Appearance,Urine Clear (Clear); Bilirubin,Urine Negative (Negative); Blood,Urine Moderate (Negative); Color,Urine Yellow; Glucose,Urine (UA) Negative (Negative); Ketones,Urine Trace (Negative); Leukocyte Esterase,Urine Small (Negative); Mucus,Urine Many /hpf; Nitrite,Urine Negative (Negative); PH, Urine 6.5 (5.0-8.0); Protein,Urine Trace (Negative); RBC,Urine 7 /hpf (0-5); Specific Gravity,Urine 1.026 (1.001-1.035); Squamous Epithelial Cell,Urine 3 /hpf (0-4); WBC,Urine 2 /hpf (0-5)
[2018-08-31 18:02] LABS: Basophils # (A) 0.1 k/uL (0-0.2); Basophils % (A) 1 %; Eosinophils # (A) 0.2 k/uL (0-0.7); Eosinophils % (A) 3 %; HCT 45.7 % (34.0-46.0); HGB 15.1 gm/dL (11.4-16.0); Lymphocytes # (A) 2.5 k/uL (1.0-4.8); Lymphocytes % (A) 32 %; MCH 31.9 pg (25.0-35.0); MCHC 33.1 g/dL (31.0-37.0); MCV 96.4 fL (80.0-100.0); Mean Platelet Volume 8.1; Monocytes # (A) 0.3 k/uL (0-1.0); Monocytes % (A) 4 %; Neutrophils # (A) 4.6 k/uL (1.3-7.7); Neutrophils % (A) 58 %; Platelet Count 258 k/uL (150-450); RBC 4.74 m/uL (3.80-5.40); RDW 12.7 % (11.5-15.5)
[2018-08-31 18:19] LABS: ALT 32 U/L (9-52); AST 24 U/L (14-36); Albumin 4.7 g/dL (3.5-5.0); Alkaline Phosphatase 48 U/L (38-126); Amylase 51 U/L (30-110); Anion Gap 9 mmol/L; Blood Urea Nitrogen 9 mg/dL (7-17); Carbon Dioxide 24 mmol/L (22-30); Chloride 109 mmol/L (98-107); Glucose 87 mg/dL (74-99); Lipase 129 U/L (23-300); Potassium 4.2 mmol/L (3.5-5.1); Sodium 142 mmol/L (137-145); Total Protein 7.6 g/dL (6.3-8.2)
[2018-08-31 19:42] VITALS: BP 151/102; PULSE 82; RESP 16; TEMP 98.5
--- NOTE | 2018-08-31 19:50 | XR ---
EXAMINATION TYPE: XR KUB, 2 upright views DATE OF EXAM: 08/31/2018 COMPARISON: 12/13/2015 HISTORY: Left flank pain TECHNIQUE: 2v FINDINGS: Visualized lung bases and pleural spaces are negative. No pneumoperitoneum. Bowel gas pattern is normal. There is a 5 mm calcification superimposed over the right renal shadow. No calcifications superimpose d over the left renal shadow. No calcifications over the expected course of the ureters or urinary bl adder. No acute skeletal findings or evidence of acute soft tissue findings. IMPRESSION: No acute process.
== END 2018-08-31 19:45 | disposition home or self-care (01) ==
LOC: EC 16:17
DX: R10.9 Unspecified abdominal pain (principal); R30.0 Dysuria; F17.200 Nicotine dependence, unspecified, uncomplicated; Z91.013 Allergy to seafood; Z91.048 Other nonmedicinal substance allergy status; Z87.442 Personal history of urinary calculi; Z98.890 Other specified postprocedural states; Z96.0 Presence of urogenital implants
CPT/HCPCS: 36415; 80053; 82150; 83690; 85025; 81001; 81025; 74018; 99284; 96374; 96375; 96361; J2405; J1885

== ENCOUNTER → 2018-10-05 | Outpatient (CLI) | payer OTHER ==
--- NOTE | 2018-10-05 14:05 | MR ---
EXAMINATION TYPE: MR thoracic spine wo con DATE OF EXAM: 10/05/2018 COMPARISON: None HISTORY: Thoracic spine pain TECHNIQUE: Multiplanar, multisequence images of the thoracic spine were acquired without intravenous contrast. FINDINGS: Decreased T1 and T2 signal of the T10 vertebral body without vertebral body height loss. The remainde r of the thoracic vertebral bodies maintain normal bone marrow signal. Vertebral body heights and ali gnment are maintained throughout the thoracic spine. There is also slight decreased T1 and T2 signal at the L1 vertebral body however this is less pronounced than at T10. The thoracic spinal cord signal is within normal limits. Prominent epidural lipomatosis is noted. At T6-T7 there is a small broad-based disc bulge without spinal canal stenosis or neural foraminal na rrowing. At T7-T8 there is a right paracentral small disc herniation creating mild right neural foraminal narr owing without significant spinal canal stenosis. No left neural foraminal narrowing is seen. At T8-T9 there is a very small central disc herniation narrowing the ventral subarachnoid space and a butting the ventral thoracic cord. Overall there is no significant spinal canal stenosis nor neural f oraminal narrowing. At T9-T10 there is disc desiccation without disc bulge or herniation. No spinal canal stenosis nor ne ural foraminal narrowing. Within the remainder of the thoracic levels there is no significant disc disease, spinal canal stenos is nor neural foraminal narrowing. IMPRESSION: 1. Focal decreased signal of the T10 vertebral body and to a lesser degree of the L1 vertebral body. Recommendation is correlation with nuclear medicine bone scan to evaluate for uptake. A focal uptake is seen neoplastic bone marrow involvement would be suspected in evaluation for breast cancer, lympho ma, myeloma should be given. No compression deformity is seen. MRI with contrast could also be utiliz ed to evaluate for marrow enhancement. 2. Right paracentral disc herniation at T7-T8 creating mild right neural foraminal narrowing. 3. Small central disc herniation at T8-T9 without spinal canal stenosis nor neural foraminal narrowin g. 4. Mild multilevel degenerative disc disease at T9-T10 and T6-7.
== END | disposition home or self-care (01) ==
LOC: RADMRIMAIN 06:14
PROVIDERS: ATTEND Psychiatry & Neurology Neurology
DX: M48.04 Spinal stenosis, thoracic region (principal); M51.24 Other intervertebral disc displacement, thoracic region; M51.34 Other intervertebral disc degeneration, thoracic region; Z91.013 Allergy to seafood; Z88.8 Allergy status to other drugs, medicaments and biological substances
CPT/HCPCS: 72146

== ENCOUNTER → 2020-02-01 | Outpatient (CLI) | payer OTHER ==
--- NOTE | 2020-02-01 08:59 | US ---
EXAMINATION TYPE: US pelvic complete DATE OF EXAM: 02/01/2020 COMPARISON: 03/13/2017 CLINICAL HISTORY: N93.8 Disfunctional uterine bleeding. Ablation done 2017 DUB TECHNIQUE: Transvaginal (TV) and Transabdominal (TA) . Transabdominal sonographic images of the pel vis were acquired. Transvaginal sonographic images were medically necessary to better assess the fol lowing anatomy: Uterus and ovaries. EXAM MEASUREMENTS: Uterus: 6.2 x 3.4 x 5.1 cm Endometrial Stripe: .7 cm Right Ovary: 4.6 x 3.5 x 4.5 cm Left Ovary: Obscured by bowel gas. 1. Uterus: Anteverted wnl 2. Endometrium: wnl 3. Right Ovary: Complex area seen 3.5 x 3.3 x 3.9 cm. 4. Left Ovary: Obscured by overlying bowel gas Spectral, color and waveform doppler imaging shows good arterial and venous flow within the right o vary; there is no evidence for right ovarian torsion. 5. Bilateral Adnexa: wnl 6. Posterior cul-de-sac: wnl IMPRESSION: 1. There Is a complex mass within the right ovary measuring 3.9 cm. Differential diagnosis would incl ude endometrioma as well as hemorrhagic cyst. Cystic neoplasms of the ovary are also in the different ial diagnosis. There is a Small amount of adjacent fluid noted. 2. There is slight lobulation of the uterus without evidence of discrete fibroid.
--- NOTE | 2020-02-02 10:40 | USB ---
Reason for exam: clinical finding. History: Family history of breast cancer in maternal grandmother at age 78. Indicated problem(s): pain in the right breast. Physical Findings: Nurse Summary: pain x 2 years, continuous tender feeling, thickening 9-12 o'clock (nurse kp). US Breast RT Technologist: Geovanna Mcwilliams Right complete breast ultrasound includes all four quadrants, the retroareolar region and axilla. Finding demonstrates no cystic or solid lesion seen. These results were verbally communicated with the patient and result sheet given to the patient on 02/01/20. ASSESSMENT: Incomplete: need additional imaging evaluation, BI-RAD 0 RECOMMENDATION: Follow-up diagnostic mammogram of both breasts. Manage patient on a clinical basis.
== END | disposition home or self-care (01) ==
LOC: RADUSWWP 08:19
PROVIDERS: ATTEND Obstetrics & Gynecology
DX: N83.291 Other ovarian cyst, right side (principal); N93.8 Other specified abnormal uterine and vaginal bleeding; N64.4 Mastodynia
CPT/HCPCS: 76830; 76856; 93976

== ENCOUNTER → 2020-02-10 | Outpatient (CLI) | payer OTHER ==
--- NOTE | 2020-02-13 08:25 | MM ---
Reason for exam: additional evaluation requested from prior study. Baseline mammogram. History: Patient history of other cancer. Family history of breast cancer in maternal grandmother at age 78. MG 3D Diag Mammo W/Cad KATELYN Bilateral CC and MLO view(s) were taken. The breast tissue is heterogeneously dense. This may lower the sensitivity of mammography. Finding: There are typically benign skin calcifications in the right breast. There is no discrete abnormality. These results were verbally communicated with the patient and result sheet given to the patient on 02/10/20. ASSESSMENT: Benign, BI-RAD 2 RECOMMENDATION: Routine screening mammogram of both breasts in 1 year. Manage on a clinical basis with regard to breast pain.
== END | disposition home or self-care (01) ==
LOC: RADMAMWWP 07:32
PROVIDERS: ATTEND Obstetrics & Gynecology
DX: R92.8 Other abnormal and inconclusive findings on diagnostic imaging of breast (principal)
CPT/HCPCS: 77066; G0279; 77062

== ENCOUNTER → 2021-11-04 | Outpatient (CLI) | payer BC ==
[2021-11-04 14:36] LABS: Basophils # (A) 0.08 X 10*3/uL (0.00-0.10); Eosinophils # (A) 0.23 X 10*3/uL (0.04-0.35); Eosinophils % (A) 2.9 %; HCT 43.1 % (37.2-46.3); HGB 14.2 g/dL (12.0-15.0); Immature Grans, Automated 0.4 %; Lymphocytes # (A) 1.78 X 10*3/uL (0.90-5.00); Lymphocytes % (A) 22.3 %; MCH 33.2 pg (27.0-32.0); MCHC 32.9 g/dL (32.0-37.0); MCV 100.7 fL (80.0-97.0); Monocytes # (A) 0.43 X 10*3/uL (0.20-1.00); Monocytes % (A) 5.4 %; NRBC Per 100 WBC 0 /100 WBCS (0.0-0.0); Neutrophils # (A) 5.42 X 10*3/uL (1.80-7.70); Platelet Count 251 X 10*3/uL (140-440); RBC 4.28 X 10*6/uL (4.10-5.20); RDW 12.5 % (11.5-14.5); WBC 7.97 X 10*3/uL (4.50-10.00)
[2021-11-04 14:44] LABS: African American GFR (CKD) 127.4 (60.0-200.0); Anion Gap 9.1 mmol/L (10.00-18.00); BUN/Creat Ratio 17.14 Ratio (12.00-20.00); Calcium 9.2 mg/dL (8.7-10.3); Carbon Dioxide 23.9 mmol/L (20.0-27.5); Non-African American GFR(CKD) 109.9 (60.0-200.0); Potassium 4.4 mmol/L (3.5-5.5)
== END | disposition home or self-care (01) ==
LOC: LABPAT 10:12
PROVIDERS: ATTEND Obstetrics & Gynecology
DX: Z01.812 Encounter for preprocedural laboratory examination (principal)
CPT/HCPCS: 80048; 85025

== ENCOUNTER 2021-11-14 05:34 | Observation (INO) | payer BC ==
[2021-11-08 10:45] VITALS: BMI 27.7
[2021-11-14] MEDS ORDERED: DEXAMETHASONE SOD PHOSPHATE 4 MG/ML 1 ML VIAL IV ONE (05:47)
[2021-11-14] MEDS ORDERED: LIDOCAINE 1% (10MG/ML) FOR IV START INTRADERMA PRN (05:47)
[2021-11-14] MEDS ORDERED: LACTATED RINGERS 1,000 ML IV SCH (05:47)
[2021-11-14] MEDS ORDERED: ONDANSETRON 4 MG/2 ML VIAL IVP ONE (05:47)
[2021-11-14] MEDS ORDERED: MIDAZOLAM 2 MG/2 ML VIAL IV PRN (05:47)
[2021-11-14] MEDS ORDERED: SCOPOLAMINE 1.5MG/72HR PATCH TRANSDERM ONE (06:25)
[2021-11-14] MEDS ORDERED: fentaNYL (PF) 50 MCG/ML 2 ML AMP IV PRN (07:00)
--- NOTE | 2021-11-14 07:01 | P.HPOB ---
History of Present Illness H&P Date: 11/14/21 Chief Complaint: dysmenorrhea 36-year-old presents for total laparoscopic hysterectomy bilateral salpingectomy using da Ciarra and diagnostic cystoscopy. She's having dysmenorrhea interfering with her activities of daily living. Review of Systems All systems: negative Constitutional: Denies chills, Denies fever Eyes: denies blurred vision, denies pain Ears, nose, mouth and throat: Denies headache, Denies sore throat Cardiovascular: Denies chest pain, Denies shortness of breath Respiratory: Denies cough Gastrointestinal: Denies abdominal pain, Denies diarrhea, Denies nausea, Denies vomiting Genitourinary: Denies dysuria, Denies hematuria Musculoskeletal: Denies myalgias Integumentary: Denies pruritus, Denies rash Neurological: Denies numbness, Denies weakness Psychiatric: Denies anxiety, Denies depression Endocrine: Denies fatigue, Denies weight change Past Medical History Past Medical History: Renal Disease Additional Past Medical History / Comment(s): KIDNEY STONES, colitis, migraines, endometriosis, History of Any Multi-Drug Resistant Organisms: None Reported Past Surgical History: Section, Tubal Ligation, Uterine Ablation Additional Past Surgical History / Comment(s): PT STATES SHE HAS HAD A ROBOTIC SURGERY FOR ENDOMETRIOSIS; KIDNEY STENT; BLADDER STENT; LITHOTRIPSY. uterine ablation. Past Anesthesia/Blood Transfusion Reactions: No Reported Reaction Smoking Status: Current every day smoker - Past Family History Father Family Medical History: Diabetes Mellitus Mother Family Medical History: Unable to Obtain Additional Family Medical History / Comment(s): PT STATES SHE DOES NOT HAVE ANYTHING MUCH TO DO WITH HER MOTHER. Medications and Allergies Home Medications Medication Instructions Recorded Confirmed Type FLUoxetine HCL [PROzac] 40 mg PO DAILY@1430 11/08/21 11/14/21 History HYDROcodone/APAP 5-325MG [[place] 1 tab PO Q4HR PRN 11/08/21 11/14/21 History 5-325] Ibuprofen [Motrin] 800 mg PO Q8H PRN 11/08/21 11/14/21 History hydrOXYzine HCL [Atarax] 25 mg PO HS 11/08/21 11/14/21 History Allergies Allergy/AdvReac Type Severity Reaction Status Date / Time fish derived Allergy HIVES,THROAT Verified 11/14/21 05:58 CLOSES ivory soap Allergy Rash/Hives Uncoded 11/14/21 05:58 Exam Osteopathic Statement: *. No significant issues noted on an osteopathic structural exam other than those noted in the History and Physical/Consult. Vital Signs Temp Pulse Resp BP Pulse Ox 11/14/21 06:08 98.0 F 71 16 133/68 96 Intake and Output 11/13/21 11/13/21 11/14/21 14:59 22:59 06:59 Other: Weight 77.2 kg Heart: Regular rate and rhythm Lungs: Clear to auscultation bilaterally Abdomen: Soft, nontender Extremities: Negative Homans sign Assessment and Plan (1) Dysmenorrhea Current Visit: Yes Status: Acute Code(s): N94.6 - DYSMENORRHEA, UNSPECIFIED SNOMED Code(s): 600097054 Plan: 1. Total laparoscopic hysterectomy and bilateral salpingectomy using da Ciarra and diagnostic cystoscopy.
[2021-11-14] MEDS ORDERED: SUCCINYLCHOLINE CHLORIDE 100 MG/5 ML SYR IV ONE (07:11)
[2021-11-14] MEDS ORDERED: LIDOCAINE 1% INJ 10MG/ML (20 ML MDV) ONE (07:11)
[2021-11-14] MEDS ORDERED: fentaNYL (PF) 50 MCG/ML 2 ML AMP ONE (07:11)
[2021-11-14] MEDS ORDERED: NEOSTIGMINE 1 MG/ML 10 ML VIAL ONE (07:11)
[2021-11-14] MEDS ORDERED: ROCURONIUM 10 MG/ML (5 ML VIAL) IV ONE (07:11)
[2021-11-14] MEDS ORDERED: GLYCOPYRROLATE 0.2 MG/ML 2 ML VIAL ONE (07:11)
[2021-11-14] MEDS ORDERED: PROPOFOL 10 MG/ML 20 ML VIAL IV ONE (07:11)
[2021-11-14] MEDS ORDERED: MIDAZOLAM 2 MG/2 ML VIAL ONE (07:11)
[2021-11-14] MEDS ORDERED: BUPIVACAINE (PF) 0.25% 30 ML VIAL SQ ONE (07:41)
[2021-11-14] MEDS: HYDROmorphone 0.5 MG/0.5 ML SYRINGE IVP PRN ×3 (08:45→09:40)
[2021-11-14] MEDS ORDERED: KETOROLAC 15 MG/ML 1 ML VIAL IVP ONE (08:50)
--- NOTE | 2021-11-14 08:52 | P.OP ---
Date of Procedure: 11/14/21 Preoperative Diagnosis: 1. Pelvic pain 2. Dysmenorrhea Postoperative Diagnosis: 1. Pelvic pain 2. Dysmenorrhea 3. Left ovarian cyst 4. Pelvic adhesions Procedure(s) Performed: Total laparoscopic hysterectomy bilateral salpingectomy using da Ciarra and diagnostic cystoscopy Anesthesia: MURPHY Surgeon: Samantha Chaidez Estimated Blood Loss (ml): 25 IV fluids (ml): 600 Urine output (ml): 100 Pathology: other (Uterus, cervix, bilateral tubes) Condition: stable Disposition: PACU Operative Findings: Uterus sounded to 6 cm. The right fallopian tube was adhered to the posterior cul-de-sac and there was a left ovarian cyst. Description of Procedure: Patient taken the operating room where general anesthesia was obtained without difficulty. She is prepped and draped in normal sterile fashion dorsal l ithotomy position, legs placed in the Nathan stirrups. Weighted speculum placed in the vagina and the anterior lip the cervix was grasped with single-tooth tenaculum. The uterus sounded to 6 cm and the cervix diameter was 3.5 cm. The appropriate manipulator tip and ring were placed on the Mariam manipulator. The Mariam manipulator was then placed in the uterus. Barroso catheter was also placed. Attention was then turned to the abdomen and gloves were changed. A 5 mm supraumbilical incision was made the scalpel and a 5 mm optical trocar was placed under direct visualization. 10 cm to the right of this and 2 cm down a 5 mm incision was made and 8 mm da Ciarra port was placed under direct visualization. Same measurements on the opposite side of the patient's abdomen, the 5 mm incision was made and 8 mm da Ciarra port was placed under direct visualization. In the left upper quadrant a 10 mm incision was made and a 10 mm optical trocar was placed under direct visualization. The 5 mm optical trocar was then replaced with the 8 mm da Ciarra camera port. The robot was docked on patient's right side. The camera was introduced and then the monopolar curved scissor and [place] bipolar placed under direct visualization. I broke scrub and went to the physician console. The left mesosalpinx was cauterized with the [place] bipolar and cut with monopolar curved scissors to free the left fallopian tube. The left round ligament and utero-ovarian ligament were cauterized with the [place] bipolar and cut with monopolar curved scissors. The posterior leaf of the broad ligament was taken down using the monopolar curved scissors. Anterior leaf of the broad ligament was then taken down using the monopolar curved scissors. The uterine artery was cauterized with the [place] bipolar and cut with monopolar curved scissors. The bladder flap was then started using the monopolar curved scissors. Attention was then turned to the right side of the patient's anatomy and The right mesosalpinx was cauterized with the [place] bipolar and cut with monopolar curved scissors to free the right fallopian tube. The right round ligament and utero-ovarian ligament were cauterized with the [place] bipolar and cut with monopolar curved scissors. Posterior leaf of the broad ligament was taken down using the monopolar curved scissors and the anterior leaf was taken down using the monopolar curved scissors. The uterine artery was cauterized the [place] bipolar cut with monopolar curved scissors. The bladder flap was then finished on this side. Anterior colpotomy was made using the monopolar curved scissors. The rest of the uterus was from the vaginal cuff by following the ring around with the monopolar curved scissors through the uterosacral ligaments back to the anterior portion. Once the uterus and cervix were amputated they were pulled through the vaginal cuff. Hemostasis was assured. The instruments were changed for the Cardier forcep and the mary suture cut. The vaginal cuff was then closed using 0 Vicryl suture in a [id number] fashion. Hemostasis was again assured and the pelvis was irrigated. All instruments were removed from the abdomen and the robot was undocked. I scrubbed back in to perform a cystoscopy. There were jets from both ureteral orifices. The abdominal incisions were closed with 4-0 Vicryl in a subcuticular fashion. Patient tolerated the procedure well, sponge and instrument counts correct 2 and she was taken to recovery room in stable condition condition
[2021-11-14] MEDS ORDERED: LACTATED RINGERS 1,000 ML IV ONE (09:10)
[2021-11-14] MEDS ORDERED: SIMETHICONE 80 MG CHEWABLE PO PRN (10:21)
[2021-11-14] MEDS ORDERED: METOCLOPRAMIDE 5 MG/ML 2 ML VIAL IVP PRN (10:21)
[2021-11-14] MEDS ORDERED: ONDANSETRON 4 MG/2 ML VIAL IVP PRN (10:21)
[2021-11-14] MEDS ORDERED: ZOLPIDEM 5 MG TAB PO PRN (10:21)
[2021-11-14] MEDS: HYDROcodone/APAP 7.5-325MG 1 EACH TAB PO PRN ×2 (12:00→17:50)
[2021-11-14] MEDS ORDERED: FLUoxetine HCL 20 MG CAP PO SCH (14:30)
[2021-11-14] MEDS: KETOROLAC 15 MG/ML 1 ML VIAL IVP PRN ×2 (15:57→21:22)
[2021-11-14] MEDS ORDERED: hydrOXYzine HCL 25 MG TAB PO SCH (21:00)
[2021-11-15] MEDS: SENNOSIDES-DOCUSATE SODIUM 1 EACH TAB PO SCH ×2 (02:09→02:12)
[2021-11-15] MEDS: KETOROLAC 15 MG/ML 1 ML VIAL IVP PRN (06:34)
[2021-11-15 08:07] LABS: Basophils # (A) 0.1 k/uL (0-0.2); Basophils % (A) 1 %; Eosinophils # (A) 0.2 k/uL (0-0.7); Eosinophils % (A) 2 %; Lymphocytes # (A) 2.4 k/uL (1.0-4.8); Lymphocytes % (A) 21 %; MCH 34.8 pg (25.0-35.0); MCHC 33.3 g/dL (31.0-37.0); MCV 104.4 fL (80.0-100.0); Macrocytosis Slight; Mean Platelet Volume 8.5; Monocytes # (A) 0.4 k/uL (0-1.0); Monocytes % (A) 4 %; Neutrophils # (A) 7.9 k/uL (1.3-7.7); Neutrophils % (A) 70 %; Platelet Count 239 k/uL (150-450); RBC 4.02 m/uL (3.80-5.40); RDW 12.9 % (11.5-15.5); WBC 11.4 k/uL (3.8-10.6)
[2021-11-15 08:21] VITALS: BP 127/91; PULSE 84; RESP 16; TEMP 98.2
--- NOTE | 2021-11-15 08:46 | P.DS ---
Providers Date of admission: 11/14/21 22:24 Expected date of discharge: 11/15/21 Attending physician: Samantha Chaidez Primary care physician: Stated None - Discharge Diagnosis(es) (1) Dysmenorrhea Current Visit: Yes Status: Resolved (2) S/P robot-assisted surgical procedure Current Visit: Yes Status: Acute Hospital Course: Patient presented for total laparoscopic hysterectomy bilateral salpingectomy. Gen. this procedure without crepitation. Denies nausea, vomiting, chest pain, shortness of breath or any calf pain. She's admitting voiding without difficulty, passing flatus and tolerating regular diet. Patient will be discharged home postoperative day #1 in stable condition to follow-up with me in 3 weeks. Plan - Discharge Summary Discharge Rx Participant: Yes New Discharge Prescriptions: New HYDROcodone/APAP 7.5-325MG [[place] 7.5-325] 1 each PO Q6HR PRN #12 tab PRN Reason: Pain No Action Ibuprofen [Motrin] 800 mg PO Q8H PRN PRN Reason: Pain HYDROcodone/APAP 5-325MG [[place] 5-325] 1 tab PO Q4HR PRN PRN Reason: Pain FLUoxetine HCL [PROzac] 40 mg PO DAILY@1430 hydrOXYzine HCL [Atarax] 25 mg PO HS Discharge Medication List FLUoxetine HCL [PROzac] 40 mg PO DAILY@1430 11/08/21 [History] HYDROcodone/APAP 5-325MG [[place] 5-325] 1 tab PO Q4HR PRN 11/08/21 [History] Ibuprofen [Motrin] 800 mg PO Q8H PRN 11/08/21 [History] hydrOXYzine HCL [Atarax] 25 mg PO HS 11/08/21 [History] HYDROcodone/APAP 7.5-325MG [[place] 7.5-325] 1 each PO Q6HR PRN #12 tab 11/15/21 [Rx] Follow up Appointment(s)/Referral(s): Samantha Chaidez DO [Doctor of Osteopathic Medicine] - 3 Weeks
[2021-11-15] MEDS ORDERED: ACETAMINOPHEN TAB 325 MG TAB PO PRN (08:54)
== END 2021-11-15 09:05 | disposition home or self-care (01) ==
LOC: OR 05:34 → 4FBP 09:03 → OR 22:24 → 4FBP 22:24
PROVIDERS: ADMIT Obstetrics & Gynecology; ATTEND Obstetrics & Gynecology
DX: N94.6 Dysmenorrhea, unspecified (principal); N99.85 Post endometrial ablation syndrome; N83.202 Unspecified ovarian cyst, left side; N72 Inflammatory disease of cervix uteri; N87.0 Mild cervical dysplasia; N73.6 Female pelvic peritoneal adhesions (postinfective); N83.8 Other noninflammatory disorders of ovary, fallopian tube and broad ligament; G43.909 Migraine, unspecified, not intractable, without status migrainosus; F17.210 Nicotine dependence, cigarettes, uncomplicated; Z79.899 Other long term (current) drug therapy; Z91.018 Allergy to other foods; Z91.048 Other nonmedicinal substance allergy status; Z98.51 Tubal ligation status; Z98.891 History of uterine scar from previous surgery; Z87.442 Personal history of urinary calculi; Z98.890 Other specified postprocedural states; Z83.3 Family history of diabetes mellitus
CPT/HCPCS: 58552; S2900; 81025; 85025; 86850; 86900; 86901; 88307